=== PATIENT | male | born 1970 | race Caucasian/White ===

== ENCOUNTER → 2019-09-28 11:51 | Outpatient (BNVA) | payer OTHER, SELFPAY | PROVIDERS: Family Provider Family Medicine; PCP Family Medicine; Visit Provider Family Medicine | DX: E87.6 Hypokalemia (principal); I11.0 Hypertensive heart disease with heart failure; I50.32 Chronic diastolic (congestive) heart failure; E78.5 Hyperlipidemia, unspecified | CPT/HCPCS: 80048 ==

== ENCOUNTER → 2020-05-29 09:56 | Outpatient (BNVA) | payer BC, SELFPAY | PROVIDERS: Family Provider Family Medicine; PCP Family Medicine; Visit Provider Family Medicine | DX: E87.6 Hypokalemia (principal); I10 Essential (primary) hypertension; E78.5 Hyperlipidemia, unspecified; I50.30 Unspecified diastolic (congestive) heart failure; M25.50 Pain in unspecified joint; I50.32 Chronic diastolic (congestive) heart failure; R22.9 Localized swelling, mass and lump, unspecified | CPT/HCPCS: 80053; 80061; 85651; 86140 ==

== ENCOUNTER → 2020-09-09 11:02 | Outpatient (BNVA) | payer OTHER, SELFPAY | PROVIDERS: Family Provider Family Medicine; PCP Family Medicine; Visit Provider Nurse Practitioner Family | DX: Z20.828 Contact with and (suspected) exposure to other viral communicable diseases (principal) | CPT/HCPCS: 87635 ==

== ENCOUNTER → 2021-03-11 08:54 | Outpatient (BNVA) | payer OTHER, SELFPAY | PROVIDERS: Family Provider Family Medicine; PCP Family Medicine; Visit Provider Family Medicine | DX: E78.5 Hyperlipidemia, unspecified (principal); I10 Essential (primary) hypertension; E87.6 Hypokalemia; M25.50 Pain in unspecified joint; J45.20 Mild intermittent asthma, uncomplicated; I50.32 Chronic diastolic (congestive) heart failure; M25.59 Pain in other specified joint; I50.30 Unspecified diastolic (congestive) heart failure | CPT/HCPCS: 80053; 80061 ==

== ENCOUNTER → 2021-10-14 09:35 | Outpatient (BNVA) | payer OTHER, SELFPAY | PROVIDERS: Family Provider Family Medicine; PCP Family Medicine; Visit Provider Family Medicine | DX: M17.11 Unilateral primary osteoarthritis, right knee (principal) | CPT/HCPCS: 73562 ==

== ENCOUNTER 2021-12-08 11:44 | Observation (INO) | payer OTHER, SELFPAY ==
[2021-12-08] VITALS (9 sets, daily range): BP systolic 124–169; BP diastolic 73–98; PULSE 81–105; RESP 16–23; TEMP 36.5–36.8; O2SAT 98–100; BMI 46.5
--- NOTE | 2021-12-08 11:45 | XRR_ITS ---
PROCEDURE INFORMATION: Exam: XR Chest Exam date and time: 12/08/2021 12:41 PM Age: 51 years old Clinical indication: Pain; Chest pressure; Additional info: Cp TECHNIQUE: Imaging protocol: XR of the chest. Views: 1 view. COMPARISON: CR Cervical Spine Flex/Ext [id number] 01/05/2018 4:29 PM FINDINGS: Lungs: Unremarkable. No consolidation. Pleural spaces: Unremarkable. No pleural effusion. No pneumothorax. Heart/Mediastinum: Unremarkable. No cardiomegaly. Bones/joints: Unremarkable. XR/XR chest 1V portable [id number] IMPRESSION: No acute findings.
--- NOTE | 2021-12-08 11:45 | ECG_ITS ---
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 Measurements Intervals [place] Rate: 83 P: 38 OR: 136 QRS: 59 QRSD: 111 T: 40 QT: 363 QTc: 428 Interpretive Statements SINUS RHYTHM LOW QRS VOLTAGE IN PRECORDIAL LEADS [QRS DEFLECTION < 1.0 mV IN CHEST LEADS] PATTERN CONSISTENT WITH PULMONARY DISEASE MODERATE INTRAVENTRICULAR CONDUCTION DELAY [110+ ms QRS DURATION] MODERATE ST DEPRESSION [0.05+ mV ST DEPRESSION] No previous ECG available for comparison Electronically Signed On 12-09-2021 9:01:12 CDT by Omar Navarro M.D. [id number]
--- NOTE | 2021-12-08 12:23 | W.ED.CHESTPA ---
HPI - Chest Pain General: Chief Complaint: Chest Pain Stated Complaint: Chest Pains, SOB, Pulse Eratic, Lft Jaw Pain Time Seen by Provider: 12/08/21 11:48 PFSH ED PFSH: Medical History Arthralgia Bilateral carpal tunnel syndrome Cervical spondylosis with myelopathy and radiculopathy Chronic constipation Coronary artery disease Diastolic CHF Dyslipidemia Essential hypertension Switch from ibersartan to losartan due to availability of medication Hypokalemia Mild intermittent asthma, uncomplicated Primary osteoarthritis of left knee Surgical History H/O cervical spinal arthrodesis Previous back surgery S/P cervical spinal fusion S/P knee surgery Family History Mother Cancer Father Cancer Social History Smoking and tobacco status: former smoker Quit status (tobacco): has quit using tobacco Year quit tobacco: 1995 Second hand smoke exposure: No Smoking risk assessment/counseling performed?: No Reason smoking risk assessment not done: not indicated Alcohol intake: never Desire information about alcohol rehabilitation?: No Counseling given: No Reason alcohol counseling not done: not indicated Desire information about substance/drug rehabilitation?: No Counseling given: No Reason substance/drug use counseling not done: not indicated Adopted: No Caregiver/support person: Yes Lives independently: No Household members: spouse Housing: House Marital status: Current occupational status: employed History of recent travel: No Current gender identity: Male Special tigist needs: No Agree to transfusion: No Financial difficulty paying for basics: Not Applicable Course Vital Signs: Vital signs: Vital Signs Temperature 97.8 F 12/08/21 11:52 Pulse Rate 83 12/08/21 11:52 Respiratory Rate 16 12/08/21 11:52 Blood Pressure 142/80 12/08/21 11:52 Pulse Oximetry 99 12/08/21 11:52 Discharge Plan Discharge Condition: Stable Prescriptions: No Action simvastatin 40 mg tablet 40 mg PO DAILY 90 Days Qty: 90 3RF potassium chloride 20 mEq tablet,ER particles/crystals 20 meq PO DAILY 90 Days Qty: 90 3RF meloxicam 15 mg tablet 15 mg PO DAILY 90 Days Qty: 90 3RF Rx Instructions: WITH FOOD losartan 100 mg tablet 100 mg PO DAILY 90 Days Qty: 90 3RF bumetanide 2 mg tablet 2 mg PO BID PRN (Reason: leg swelling) 90 Days Qty: 120 3RF Rx Instructions: 1 daily always, and occasionally 2 daily as directed albuterol sulfate [Proventil HFA] 90 mcg/actuation HFA aerosol inhaler 2 puff INHALATION .COMPLEX PRN (Reason: shortness of breath or wheezing) 30 Days Qty: 18 11RF Rx Instructions: 2 puffs inhalation every 4 to 6 hours PRN; Referrals: Kandi Swan MD [Primary Care Provider] - Coding Level of Care Code ED Director Of Corporate Communications for [facility]
--- NOTE | 2021-12-08 12:27 | ED_ITS ---
HPI - General Adult General: Chief complaint: Chest Pain Stated complaint: Chest Pains, SOB, Pulse Eratic, Lft Jaw Pain Time Seen by Provider: 12/08/21 11:48 History of Present Illness: Patient is a 51-year-old male with history of HTN, HLD, diastolic heart failure followed by Dr. Zaman who is due for stress test on presenting to the emergency room with acute episode of lightheadedness around 10 AM this morning. 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 Patient felt diaphoretic and nauseous around the time when this happened. Patient also reports erratic palpitations. Patient has an apple watch which showed that his heart rate was between 60-1 20. Patient denies any active chest pain, abdominal complaints, back pain, vomiting, diaphoresis, diarrhea, melena/hematochezia. Onset:10am Duration:once lasting for a few minutes Location:home Severity: moderate/severe Associated symptoms: Reports nausea and palpitations; Deny chest pain, dyspnea, rash or vomiting Review of Systems Const: Denies: fever(s) or chills Eyes: Denies: change in vision ENMT: Denies: mouth pain Card: Reports: palpitations; Denies: chest pain Resp: Denies: dyspnea or non-productive cough GI: Reports: nausea; Denies: abdominal pain, vomiting or diarrhea : Denies: dysuria Musc: Denies: extremity pain Skin/Breast: Denies: rash or new lesions Neuro: Reports: other (+light-headedness); Denies: weakness in extremities Psych: Reports: other (Normal mood) Andrea/Lymph: Denies: easy bruising [facility] ED PFSH: Medical History (Updated 12/09/21 @ 16:59 by Ese Wilkins MD) Arthralgia Bilateral carpal tunnel syndrome Cervical spondylosis with myelopathy and radiculopathy Chronic constipation Coronary artery disease Diastolic CHF Dyslipidemia Essential hypertension Switch from ibersartan to losartan due to availability of medication Hypokalemia Mild intermittent asthma, uncomplicated Primary osteoarthritis of left knee Surgical History H/O cervical spinal arthrodesis Previous back surgery S/P cervical spinal fusion S/P knee surgery Family History Mother Cancer Father Cancer Social History Smoking and tobacco status: former smoker Quit status (tobacco): has quit using tobacco Year quit tobacco: 1995 Second hand smoke exposure: No Smoking risk assessment/counseling performed?: No Reason smoking risk assessment not done: not indicated Alcohol intake: never Desire information about alcohol rehabilitation?: No Counseling given: No Reason alcohol counseling not done: not indicated Desire information about substance/drug rehabilitation?: No Counseling given: No Reason substance/drug use counseling not done: not ervin cated Adopted: No Caregiver/support person: Yes Lives independently: No Household members: spouse Housing: House Marital status: Current occupational status: employed History of recent travel: No Current gender identity: Male Special tigist needs: No Agree to transfusion: No Financial difficulty paying for basics: Not Applicable Physical Exam Const: COMMON NORMALS: alert HENMT: COMMON NORMALS: atraumatic HEAD & SCALP: atraumatic MOUTH: moist mucous membranes not abnormal Eye: COMMON NORMALS: EOMs intact bilaterally and conjunctivae normal CONJUNCTIVA: Yes conjunctivae normal Neck/C-Spine: COMMON NORMALS: full ROM and supple Resp: COMMON NORMALS: normal respiratory effort and clear to auscultation bilaterally AUSCULTATION: clear to auscultation bilaterally Cardio: COMMON NORMALS: regular rate RATE: regular rate GI: COMMON NORMALS: Soft to palpation and non-tender PALPATION: Yes Soft to palpation Extremity: COMMON NORMALS: full ROM Neuro: SENSORIUM/ORIENTATION: Yes alert MOTOR EXAM: No Abnormal motor strength present and Other motor observations present (no focal motor deficits) Psych: COMMON NORMALS: speech normal SPEECH: Yes normal speech MOOD & AFFECT: Yes euthymic mood Course Vital Signs: Vital signs: Vital Signs Temperature 98.0 F 12/09/21 17:38 Pulse Rate 75 12/09/21 17:38 Respiratory Rate 24 H 12/09/21 17:38 Blood Pressure 144/85 12/09/21 17:38 Pulse Oximetry 97 12/09/21 17:38 [facility] - General Adult Medical Decision Making 51-year-old male with history of diastolic heart failure, hypertension, hyperlipidemia presented to emergency room for evaluation of lightheadedness at 10 AM this morning accompanied by diaphoresis and nausea. On exam, patient is AAOx3, rest of physical exam within normal limit. Troponin x1 within normal limit. EKG nonischemic. Patient is not having any episodes of lightheadedness in the ED. Given the fact the patient is high risk for cardiac causes for syncope, patient will be admitted to hospital for further workup. She was due for stress test on , if discussed 6 Dr. Rojas who will evaluate echo and decide whether to perform stress test tomorrow morning. Disposition: admission Lab Data : 12/09/21 04:35 12/09/21 04:35 Radiology Impressions Chest X-Ray 12/08/21 11:45 IMPRESSION: No acute findings. Laboratory Results WBC 13.1 10^3/uL (4.0-10.0) H 12/08/21 12:42 RBC 5.20 10^6/uL (4.1-5.3) 12/08/21 12:42 Hgb 16.5 g/dL (11.7-16.6) 12/08/21 12:42 Hct 47.1 % (42.0-52.0) 12/08/21 12:42 MCV 90.6 fl (80-94) 12/08/21 12:42 MCH 31.7 pg (28.0-34.0) 12/08/21 12:42 MCHC 35.0 g/dL (30.0-36.0) 12/08/21 12:42 RDW 12.7 % (12.1-15.1) 12/08/21 12:42 Plt Count 303 10^3/cmm (130-400) 12/08/21 12:42 MPV 10.0 fL (7.4-10.4) 12/08/21 12:42 Neut % (Auto) 86.0 % 12/08/21 12:42 Lymph % (Auto) 6.7 % 12/08/21 12:42 [place] % (Auto) 5.5 % 12/08/21 12:42 Eos % (Auto) 1.0 % 12/08/21 12:42 Baso % (Auto) 0.6 % 12/08/21 12:42 Neut # (Auto) 11.25 10^3/uL (1.8-7.7) H 12/08/21 12:42 Lymph # (Auto) 0.9 10^3/uL (0.8-4.8) 12/08/21 12:42 [place] # (Auto) 0.7 10^3/uL (0.2-0.9) 12/08/21 12:42 Eos # (Auto) 0.1 10^3/uL (0.0-0.8) 12/08/21 12:42 Baso # (Auto) 0.1 10^3/uL (0.0-0.1) 12/08/21 12:42 Nucleated RBC % (auto) 0 % 12/08/21 12:42 Nucleated RBCs # 0.0 /100WBC 12/08/21 12:42 PT 13.20 SECONDS (12.1-14.9) 12/08/21 12:42 INR 0.97 (0.8-1.2) 12/08/21 12:42 D-Dimer 0.32 ug/mIFEU (0-0.59) 12/08/21 12:42 Sodium 138 mmol/L (136-145) 12/08/21 12:42 Potassium 3.2 mmol/L (3.5-5.1) L 12/08/21 12:42 Chloride 98 mmol/L (98-107) 12/08/21 12:42 Carbon Dioxide 30 mmol/L (22-29) H 12/08/21 12:42 Anion Gap 13.2 (5-19) 12/08/21 12:42 BUN 18 mg/dL (6-20) 12/08/21 12:42 Creatinine 1.1 mg/dL (0.7-1.2) 12/08/21 12:42 GFR Calculation 70.0 mL/min (90-130) L 12/08/21 12:42 Glucose 120 mg/dL (65-115) H 12/08/21 12:42 Calculated Osmolality 289 mOsm/kg (285-295) 12/08/21 12:42 Calcium 9.3 mg/dL (8.5-10.5) 12/08/21 12:42 Total Bilirubin 0.8 mg/dL (0.15-1.2) 12/08/21 12:42 AST 14 U/L (0-40) 12/08/21 12:42 ALT 8 U/L (0-41) 12/08/21 12:42 Alkaline Phosphatase 85 IU/L (40-130) 12/08/21 12:42 Troponin T Baseline 7 ng/L (0-15) 12/08/21 12:42 NT-Pro-B Natriuret Pep 32 pg/mL (0-125) 12/08/21 12:42 Total Protein 7.2 g/dL (6.6-8.7) 12/08/21 12:42 Albumin 4.4 g/dL (3.5-5.2) 12/08/21 12:42 Globulin 2.8 g/dL (1.3-4.6) 12/08/21 12:42 TSH 1.89 uIU/mL (0.27-4.20) 12/08/21 12:42 Imaging Data Other Imaging: Radiologist's impression: [address] [address] XRay Report Signed Patient: Carlos Guillen Unit #: [id number] : 1970 Age/Sex: 51 / M ADM Date: 12/08/21 Loc: ER Room/Bed: Attending Dr: Ordering Provider/Ordering MD: Issa Arevalo MD Date of Service: 12/08/21 Procedure(s): XR chest 1V portable [id number] Accession Number(s): [id number] Report Number: [id number] PROCEDURE INFORMATION: Exam: XR Chest Exam date and time: 12/08/2021 12:41 PM Age: 51 years old Clinical indication: Pain; Chest pressure; Additional info: Cp TECHNIQUE: Imaging protocol: XR of the chest. Views: 1 view. COMPARISON: CR Cervical Spine Flex/Ext [id number] 01/05/2018 4:29 PM FINDINGS: Lungs: Unremarkable. No consolidation. Pleural spaces: Unremarkable. No pleural effusion. No pneumothorax. Heart/Mediastinum: Unremarkable. No cardiomegaly. Bones/joints: Unremarkable. XR/XR chest 1V portable [id number] IMPRESSION: No acute findings. ? 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
[2021-12-08 12:53] LABS: Basophils # 0.1 10^3/uL (0.0-0.1); Basophils % 0.6 %; Eosinophils # 0.1 10^3/uL (0.0-0.8); Hematocrit 47.1 % (42.0-52.0); Hemoglobin 16.5 g/dL (11.7-16.6); Lymphocytes # 0.9 10^3/uL (0.8-4.8); Lymphocytes % 6.7 %; Mean Corpuscular Hemoglobin 31.7 pg (28.0-34.0); Mean Corpuscular Volume 90.6 fl (80-94); Monocytes # 0.7 10^3/uL (0.2-0.9); Monocytes % 5.5 %; Neutrophils # 11.25 10^3/uL (1.8-7.7); Nucleated Red Blood Cells % 0 %; Platelet Count 303 10^3/cmm (130-400); Red Cell Distribution Width 12.7 % (12.1-15.1); White Blood Count 13.1 10^3/uL (4.0-10.0)
[2021-12-08 13:07] LABS: INR 0.97 (0.8-1.2)
[2021-12-08 13:12] LABS: Alanine Aminotransferase 8 U/L (0-41); Albumin Level 4.4 g/dL (3.5-5.2); Alkaline Phosphatase 85 IU/L (40-130); Anion Gap 13.2 (5-19); Aspartate Amino Transferase 14 U/L (0-40); Blood Urea Nitrogen 18 mg/dL (6-20); Calcium 9.3 mg/dL (8.5-10.5); Carbon Dioxide 30 mmol/L (22-29); Chloride 98 mmol/L (98-107); Globulin 2.8 g/dL (1.3-4.6); Glucose 120 mg/dL (65-115); Osmolality Calculated 289 mOsm/kg (285-295); Potassium 3.2 mmol/L (3.5-5.1); Sodium 138 mmol/L (136-145); Total Bilirubin 0.8 mg/dL (0.15-1.2); Total Protein 7.2 g/dL (6.6-8.7)
[2021-12-08 13:13] LABS: Troponin(5th) Baseline 7 ng/L (0-15)
--- NOTE | 2021-12-08 13:45 | ECG_ITS ---
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 Measurements Intervals [place] Rate: 78 P: 34 MO: 136 QRS: 77 QRSD: 114 T: 42 QT: 378 QTc: 431 Interpretive Statements SINUS RHYTHM MODERATE INTRAVENTRICULAR CONDUCTION DELAY [110+ ms QRS DURATION] Compared to ECG 12/08/2021 12:01:39 ST (T wave) deviation no longer present Electronically Signed On 12-09-2021 9:04:54 CDT by Omar Navarro M.D. [id number]
[2021-12-08 15:15] LABS: Troponin 5 2HR 6.71 ng/L (0-15)
[2021-12-08 15:22] LABS: NT Pro B Type Natriuretic Pept 32 pg/mL (0-125)
--- NOTE | 2021-12-08 15:26 | P.HP_ITS ---
Providers/Chief Complaint Primary Care Provider: Kandi Swan MD Chief Complaint: Chest Pains, SOB, Pulse Eratic, Lft Jaw Pain History of Present Illness Pleasant 51-year-old gentleman with history of diastolic congestive heart failur e, CAD, he states about 15 years ago had an angiogram with an obstruction and a tight location, however, I see documented as nonobstructive CAD and cardiology follow-up visit, states it was recommended for him to continue regular assessments originally with coronary angiograms, states has been followed with stress test, including stress has been scheduled for this . 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 He was wearing his smart watch with heart monitoring which was showing heart rates vary ing between 60-120. He denies ever having prior such episodes. He states just when coming into ER he felt perhaps some discomfort in the left side of his jaw. Currently he is feeling well. He denies otherwise chest pain or pressure. States about a month ago when he was going after a calf that he needed to catch, he got extremely short of breath, exhausted, with his heart pounding, but symptoms resolved with some rest. He states he has had chronic cough ever since he had COVID-19 in August 2020. Recently has been somewhat more short of breath. States that also about a month ago his Bumex dose was increased to 4 mg at bedtime. Review of Systems Const: Denies: fever(s), chills, body aches or malaise Eyes: Denies: change in vision or eye redness ENMT: Denies: throat pain, oral sores or ear or mastoid pain Card: Reports: edema (Chronic mild LE edema) and pre-syncope; Denies: chest pain or dyspnea on exertion Resp: Reports: other (Snores at night); Denies: dyspnea, productive cough, change in phlegm color or hemoptysis GI: Reports: nausea (during episode); Denies: abdominal pain, vomiting, diarrhea, constipation, hematochezia or melena : Denies: flank pain, difficulty urinating, urinary frequency or hematuria Musc: Denies: back pain, joint swelling or joint redness Skin/Breast: Denies: rash, sores or new lesions Neuro: Denies: headache(s), numbness in extremities, weakness in extremities, dizziness, confusion or seizure-like activity Endo: Denies: polyuria or polydipsia Andrea/Lymph: Denies: easy bleeding or purpura All/Imm: Denies: urticaria, throat swelling or tongue swelling Medications/Allergies Home Medications Medication Instructions Recorded Confirmed Last Taken Type albuterol sulfate 90 mcg/actuation 2 puff INHALATION .COMPLEX PRN 30 03/11/21 12/08/21 Unknown Rx aerosol inhaler (Proventil HFA) Days #18 g losartan 100 mg tablet 100 mg PO DAILY 90 Days #90 tab 03/11/21 12/08/21 12/08/21 Rx meloxicam 15 mg tablet 15 mg PO DAILY 90 Days #90 tab 03/11/21 12/08/21 12/08/21 Rx potassium chloride 20 mEq 20 meq PO DAILY 90 Days #90 tab 03/11/21 12/08/21 12/08/21 Rx tablet,extended release(part/cryst) simvastatin 40 mg tablet 40 mg PO DAILY 90 Days #90 tab 03/11/21 12/08/21 12/08/21 Rx bumetanide 2 mg tablet 4 mg PO BEDTIME 12/08/21 12/08/21 12/07/21 History Allergies Allergy/AdvReac Type Severity Reaction Status Date / Time No Known Allergies Allergy Verified 11/13/21 10:17 PFSH Acute PFSH: Medical History Arthralgia Bilateral carpal tunnel syndrome Cervical spondylosis with myelopathy and radiculopathy Chronic constipation Coronary artery disease Diastolic CHF Dyslipidemia Essential hypertension Switch from ibersartan to losartan due to availability of medication Hypokalemia Mild intermittent asthma, uncomplicated Primary osteoarthritis of left knee Surgical History H/O cervical spinal arthrodesis Previous back surgery S/P cervical spinal fusion S/P knee surgery Family History Mother Cancer Father Cancer Social History Smoking and tobacco status: former smoker Quit status (tobacco): has quit using tobacco Year quit tobacco: 1995 Second hand smoke exposure: No Smoking risk assessment/counseling performed?: No Reason smoking risk assessment not done: not indicated Alcohol intake: never Desire information about alcohol rehabilitation?: No Counseling given: No Reason alcohol counseling not done: not indicated Desire information about substance/drug rehabilitation?: No Counseling given: No Reason substance/drug use counseling not done: not ervin cated Adopted: No Caregiver/support person: Yes Lives independently: No Household members: spouse Housing: House Marital status: Current occupational status: employed History of recent travel: No Current gender identity: Male Special tigist needs: No Agree to transfusion: No Financial difficulty paying for basics: Not Applicable Vitals/I&O/Wt Last Vital Signs Temp 97.8 F 12/08/21 11:52 Pulse 85 12/08/21 12:39 Resp 18 12/08/21 12:39 BP 124/88 12/08/21 12:39 Pulse Ox 100 12/08/21 12:39 Weight last 48 hrs Weight 142.882 kg Physical Exam Narrative: at bedside Const: COMMON NORMALS: no acute distress and patient oriented x3 NUTRITIONAL APPEARANCE: obese HENMT: COMMON NORMALS: oropharynx normal Neck/C-Spine: COMMON NORMALS: no JVD Resp: COMMON NORMALS: normal respiratory effort and clear to auscultation bilaterally AUSCULTATION: clear to auscultation bilaterally Cardio: COMMON NORMALS: no JVD, regular rhythm, S1 normal heart sound present, S2 normal heart sound present and No murmurs present (Cardio) RHYTHM: regular rhythm HEART SOUNDS: S1 normal heart sound present and S2 normal heart sound present GI: COMMON NORMALS: Normal to inspection, nondistended, normoactive bowel sounds present, Soft to palpation and non-tender PALPATION: Yes Soft to palpation Extremity: COMMON NORMALS: no joint enlargement GENERAL: Yes edema (Trace) Neuro: COMMON NORMALS: patient oriented x3 and moves all extremities Skin: COMMON NORMALS: no rashes or lesions noted GENERAL SKIN EXAM: no rashes or lesions noted Data : 12/08/21 12:42 12/08/21 12:42 A&P Assessment and plan (1) Pre-syncope: He states that his Bumex dose was recently increased. He always has some trace edema in lower extremities, although this may also be related to some venous insufficiency, in which case he may be somewhat volume depleted. He is certainly not hypotensive. Will assess orthostatic blood pressures. Consider backing off on Bumex dose slightly. Assess TTE, monitor on telemetry. Consider post discharge cardiac monitoring. Reports heart rates were ranging 60s-120s as per his watch. On presentation also having some slight left jaw pain. Mild ST depression noted on EKG. Was scheduled for stress test on , given presyncopal event, left jaw pain well request for stress test assessment during this observation stay. Low risk for DVT. We will check D-dimer. Check TSH Follow-up with cardiology. Status: Acute (2) Coronary artery disease: I do so he also takes meloxicam as one of his medications. Please discuss and make sure he discontinues meloxicam at discharge. Start aspirin. Continue statin. Hold off adding beta-sarita for now until arrhythmia ruled out. Status: Acute Qualifiers: Coronary Disease-Associated Artery/Lesion type: [place] artery [place] vs. transplanted heart: [place] heart Associated angina: without angina Qualified Code(s): I25.10 - Atherosclerotic heart disease of [place] coronary artery without angina pectoris (3) Diastolic CHF: Trace lower extremity edema. Recently Bumex dose was increased. He states he has been feeling dehydrated frequently. Check orthostatics. Consider de- escalating Bumex. Some amount of peripheral edema may be related to venous insufficiency. He appears also may have sleep apnea as well, please refer for sleep study after discharge. Status: Acute Qualifiers: Heart failure chronicity: chronic Qualified Code(s): I50.32 - Chronic diastolic (congestive) heart failure (4) Snores: Please refer for sleep study. Status: Acute Plan Mild leukocytosis, 13.1. He is afebrile. Chest x-ray without suggestion of pneumonia. Currently without other symptoms of active infection. Please follow-up for any changes in symptoms. Reassess white count. Past history of possible prediabetes, he states he has been following with primary provider, was taken off oral medications. Reports history of asthma for which she uses inhaler occasionally. Some of the exertional shortness of breath he reports recently may be related to this. Reports also some chronic cough ever since he had Covid, may also be related to asthma. Continue albuterol as needed. In case of persistent symptoms consider addition of ICS-beta agonist combo. Mild hypokalemia: Replace HLD HTN Chronic cough after COVID-19 Obesity: Follow-up with primary provider for additional assistance with weight loss options. Other chronic medical problems noted Attestations Medical Necessity Statement*: Place in observation for additional assessment following presyncopal event in a gentleman with cardiac history including CAD, CHF Coding Level of Care Code Acute Facility Maintenance Technician for [facility] Diagnoses Pre-syncope R55 Coronary artery disease I25.10 Coronary Disease-Associated Artery/Lesion type: [place] artery [place] vs. transplanted heart: [place] heart Associated angina: without angina Diastolic CHF I50.32 Heart failure chronicity: chronic Snores R06.83
[2021-12-08] MEDS: acetaminophen 500 mg Tablet PO (15:31)
[2021-12-08 15:36] LABS: Troponin 5 2HR Delta -0.29 ABS# (0-10)
[2021-12-08 16:35] LABS: D Dimer 0.32 ug/mIFEU (0-0.59)
[2021-12-08 16:53] LABS: Thyroid Stimulating Hormone 1.89 uIU/mL (0.27-4.20)
--- NOTE | 2021-12-08 17:24 | ECG_ITS ---
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 Interpretive Statements NAME OF STUDY: EXERCISE SESTAMIBI STRESS TEST INDICATION: Pre syncope/ cad Baseline blood pressure of 156/103 mm Hg, heart rate of 85 beats per minute and oxygen saturation of 95%. EKG showed normal sinus rhythm, rightward axis. Interventricular conduction delay. The patient exercised for 4 minutes 46 seconds on a standard Saúl protocol. Patient attained a maximum heart rate of 161 beats per minute(96% of the maximum predicted heart rate) with a blood pressure at the peak exercise of 168/85 mm Hg. The EKG at the peak exercise revealed sinus tachycardia with frequent isolated PVCs at peak exercise. [address] depression noted in inferolateral leads. Patient did not have any chest pain or any significant arrhythmis with the exercise. The study was terminated due to maximal effort. Blood pressure during recovery increased to 188/86 mmHg Blood pressure at the end of the recovery phase was 159/88 mm Hg with a heart rate of 102 beats per minute and oxygen saturation of 98%. During the recovery phase, T wave inversion noted in inferior leads in late recovery. CONCLUSION: 1. Equivocal EKG response to treadmill exercise. 2. No exercise-induced chest pain or cardiac arrhythmia. 3. Patient exercised for 4 minutes 46 seconds. Decreased exercise tolerance for age, attained a maximum of 7 METs. Maximum VO2 of 24.5 mL/kg/min. 4. Baseline hypertension with normal response to exercise. 5. Exaggerated heart rate response to exercise, may be suggestive of deconditioning. 6. Perfusion scan will be documented separately. Electronically Signed On 12-12-2021 15:05:26 CDT by Britany Zaman M.D. [id number]
--- NOTE | 2021-12-08 17:45 | ECG_ITS ---
[facility] Test Date: 2021-12-08 Pat Name: Carlos Guillen Department: Room: 103 Gender: Male Records Coordinator: : 1970 Requested By: Issa Arevalo Order Number: [id number] Evelyn MD: Omar Navarro M.D. Measurements Intervals [place] Rate: 79 P: 35 NH: 157 QRS: 73 QRSD: 116 T: 3 QT: 364 QTc: 418 Interpretive Statements SINUS RHYTHM MODERATE INTRAVENTRICULAR CONDUCTION DELAY [110+ ms QRS DURATION] Compared to ECG 12/08/2021 14:31:40 T-wave abnormality now present Electronically Signed On 12-09-2021 9:04:46 CDT by Omar Navarro M.D. [id number]
[2021-12-08] MEDS: potassium chloride ER 20 mEq Tablet PO (18:27)
[2021-12-08] MEDS: pneumococcal (23 valent) SDV 0.5 mL IM (18:27)
[2021-12-08 19:27] LABS: Troponin 5 6HR 7.39 ng/L (0-15)
[2021-12-09] VITALS (9 sets, daily range): BP systolic 125–159; BP diastolic 71–88; PULSE 75–98; RESP 15–24; TEMP 36.3–36.7; O2SAT 92–98
[2021-12-09] MEDS: ondansetron 2 mg/ML SDV 2 mL 4 MG IVP (03:59)
[2021-12-09 05:09] LABS: Basophils # 0.1 10^3/uL (0.0-0.1); Basophils % 0.7 %; Eosinophils # 0.2 10^3/uL (0.0-0.8); Eosinophils % 1.8 %; Hematocrit 44.3 % (42.0-52.0); Hemoglobin 15.6 g/dL (11.7-16.6); Lymphocytes # 1.2 10^3/uL (0.8-4.8); Lymphocytes % 13.1 %; Mean Corpuscular HGB Conc 35.2 g/dL (30.0-36.0); Mean Corpuscular Hemoglobin 32.8 pg (28.0-34.0); Mean Corpuscular Volume 93.3 fl (80-94); Mean Platelet Volume 9.9 fL (7.4-10.4); Monocytes # 0.9 10^3/uL (0.2-0.9); Monocytes % 9.5 %; Neutrophils # 6.83 10^3/uL (1.8-7.7); Neutrophils % 74.7 %; Nucleated Red Blood Cells % 0 %; Platelet Count 248 10^3/cmm (130-400); Red Blood Count 4.75 10^6/uL (4.1-5.3); Red Cell Distribution Width 12.7 % (12.1-15.1); White Blood Count 9.1 10^3/uL (4.0-10.0)
[2021-12-09 05:29] LABS: Anion Gap 14.5 (5-19); Blood Urea Nitrogen 18 mg/dL (6-20); Calcium 9.2 mg/dL (8.5-10.5); Carbon Dioxide 28 mmol/L (22-29); Chloride 99 mmol/L (98-107); Creatinine Clr Calc Pharmacy 148.6969; Glomerular Filtration Rate 101.1 mL/min (90-130); Glucose 143 mg/dL (65-115); Osmolality Calculated 290 mOsm/kg (285-295); Potassium 3.5 mmol/L (3.5-5.1); Sodium 138 mmol/L (136-145)
--- NOTE | 2021-12-09 07:27 | PC.NURSE ---
to nuc med for stress test
[2021-12-09] MEDS: losartan 50 mg Tablet 100 MG PO (08:53)
[2021-12-09] MEDS: aspirin 81 mg EC Tablet PO (08:53)
[2021-12-09] MEDS: atorvastatin 40 mg Tablet 20 MG PO (08:54)
[2021-12-09] MEDS: potassium chloride ER 20 mEq Tablet PO (08:54)
--- NOTE | 2021-12-09 10:37 | PC.CHAP ---
Pastoral Care Encounter/Spiritual Assessment Type of Contact [] Declined commercial loan reviewer visit [] Patient/Family/Request visit [] Outpatient visit [] Follow-up visit [] Physician referral [] Code/Alert [x] Routine visit [] Staff referral [] Actively dying [] Patient sleeping [] Family support [] [] Out of room [] Palliative care [] [] Receiving care in room [] Pre-surgical visit [] Trauma [] Long length of stay [] ICU visit [] Other: Relational/Emotional Strength [] Patient feels connected with others/family/visitors/staff [] Distress [] Loneliness/isolation [] Abandonment Spirituality of Patient [] Person of Natalia [] Attends Adventist of their Natalia [] Believes in Prayer [] Reads Bible or Scientologist materials [] There are Spiritual issues to be addressed Residential Installer Interventions [x] Prayer [] Active listening [] Non-anxious presence [] Spiritual/emotional support [] Crisis/trauma care [] Spiritual counseling [] Bereavement support [] Provided bereavement packet [] Provided Bible/devotional materials [] Provided toy/stuffed animal, coloring book to patient or family member [] Provided Communion [] Anointing/[place] [] Salvation [x] Completed spiritual assessment [] Other: Impact on Illness or Injury [] Angry [] Fearful [] Anxious [] Often cries [] Exhaustion [] Unable to work [] Unable to attend moravian [] Unable to walk/stand [] Unable to read [] Unable to drive [] Unable to eat/drink [] Unable to sleep [] Unable to be with family [] Patient intubated [] Other: Summary sneller hand... resting well... went for test waiting for results Time spent with patient 10 min
[2021-12-09] MEDS: perflutren protein-a microsphr 0.22 mg/mL SDV 3 mL IV (11:43)
--- NOTE | 2021-12-09 17:09 | PM.DCS ---
Discharge Providers Date of Admission: 12/08/21 14:24 Date of Discharge: December 09, 2021 Attending Provider at Admission: Drake Yadav Attending Provider at Discharge: Ese Wilkins MD Primary Care Provider: Kandi Swan MD Diagnoses at Discharge Discharge Diagnosis (1) Pre-syncope: Status: Acute (2) Chest pain: Status: Acute Qualifiers: Chest pain type: precordial pain Qualified Code(s): R07.2 - Precordial pain (3) Bradycardia: Status: Acute (4) Coronary artery disease: Status: Chronic Qualifiers: Associated angina: without angina Coronary Disease-Associated Artery/Lesion type: [place] artery [place] vs. transplanted heart: [place] heart Qualified Code(s): I25.10 - Atherosclerotic heart disease of [place] coronary artery without angina pectoris (5) Diastolic CHF: Status: Chronic Qualifiers: Heart failure chronicity: chronic Qualified Code(s): I50.32 - Chronic diastolic (congestive) heart failure (6) Essential hypertension: Status: Chronic Permanent problem details: Switch from ibersartan to losartan due to availability of medication (7) Snores: Status: Acute Reason for Visit Reason for Visit: Chest Pains, SOB, Pulse Eratic, Lft Jaw Pain Brief History: From Dr Yadav H&P: Pleasant 51-year-old gentleman with history of diastolic congestive heart failure, CAD, he states about 15 years ago had an angiogram with an obstruction and a tight location, however, I see documented as nonobstructive CAD and cardiology follow-up visit, states it was recommended for him to continue regular assessments originally with coronary angiograms, states has been followed with stress test, including stress has been scheduled for this .? 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 He was wearing his smart watch with heart monitoring which was showing heart rates varying between 60-120.? He denies ever having prior such episodes.? He states just when coming into ER he felt perhaps some discomfort in the left side of his jaw.? Currently he is feeling well.? He denies otherwise chest pain or pressure.? States about a month ago when he was going after a calf that he needed to catch, he got extremely short of breath, exhausted, with his heart pounding, but symptoms resolved with some rest.? He states he has had chronic cough ever since he had COVID-19 in August 2020.? Recently has been somewhat more short of breath.? States that also about a month ago his Bumex dose was increased to 4 mg at bedtime. Hospital Course Hospital Course Patient was admitted to a medical bed. Serial cardiac enzymes were done and did not show significant delta. EKGs did not show changes. No arrhythmias were noted on telemetry monitoring. Patient underwent stress testing while here. Nuclear images did not show any ischemia. EKG portion of stress testing was not read nor was echocardiogram at the time of discharge. This was explained to the patient. In talking with him he does wear an apple watch. It has been keeping track of his heart rate slightly and during that episode in which he had near syncope, watch was registering heart rate ranging from 38-110s. Review shows that his heart rate is ranging generally 40s to 100s most days. The EKG tracings are inconclusive per him. I was not able to view any of the tracings. He is not on any medications that might contribute to bradycardia but does have snoring and body habitus suggestive of sleep apnea that could be a contributing factor. 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 Zaman in regards to outpatient event monitor. She agreed and order was placed by me for this with patient to come back tomorrow. He had one episode of nausea while in the hospital without vomiting or other discomfort. This morning he does not feel dizzy or lightheaded. White count has normalized, blood sugars remain slightly elevated according to the patient he has been evaluated and not requiring any treatment for this. Patient will need follow-up with with both Dr. Swan and Dr. Zaman. He will come in tomorrow for event monitor placement. His Bumex dosing had recently been increased. For now I have asked him to alternate 2 mg and 4 mg every other day rather than continue the 4 mg daily. At the time of discharge patient was awake and alert, lungs were clear, he had a regular rhythm. He was given an opportunity to ask questions. Discharge plans as described were reviewed with him. Discharge Data Studies Completed and Pending Completed Studies During Hospitalization Category Date Time Status Sestamibi Stress Test Request Routine Exams 12/08/21 17:24 Draft XR chest 1V portable [id number] Stat Exams 12/08/21 11:45 Completed NM chelo perf SPECT r/s* [id number] Routine Nuc Med 12/09/21 17:24 Completed Pending at discharge Category Date Time Status Basic Metabolic Panel AM LABS Lab 12/10/21 04:00 Ordered Basic Metabolic Panel AM LABS Lab 12/11/21 04:00 Ordered Complete Blood Count w/Auto AM LABS Lab 12/10/21 04:00 Ordered Complete Blood Count w/Auto AM LABS Lab 12/11/21 04:00 Ordered CV. echo wo/w contrast [id number] Routine Ultrasound 12/09/21 17:24 Taken Radiology Impressions Chest X-Ray 12/08/21 11:45 IMPRESSION: No acute findings. Laboratory Results WBC 9.1 10^3/uL (4.0-10.0) 12/09/21 04:35 RBC 4.75 10^6/uL (4.1-5.3) 12/09/21 04:35 Hgb 15.6 g/dL (11.7-16.6) 12/09/21 04:35 Hct 44.3 % (42.0-52.0) 12/09/21 04:35 MCV 93.3 fl (80-94) 12/09/21 04:35 MCH 32.8 pg (28.0-34.0) 12/09/21 04:35 MCHC 35.2 g/dL (30.0-36.0) 12/09/21 04:35 RDW 12.7 % (12.1-15.1) 12/09/21 04:35 Plt Count 248 10^3/cmm (130-400) 12/09/21 04:35 MPV 9.9 fL (7.4-10.4) 12/09/21 04:35 Neut % (Auto) 74.7 % 12/09/21 04:35 Lymph % (Auto) 13.1 % 12/09/21 04:35 Dolores % (Auto) 9.5 % 12/09/21 04:35 Eos % (Auto) 1.8 % 12/09/21 04:35 Baso % (Auto) 0.7 % 12/09/21 04:35 Neut # (Auto) 6.83 10^3/uL (1.8-7.7) 12/09/21 04:35 Lymph # (Auto) 1.2 10^3/uL (0.8-4.8) 12/09/21 04:35 Dolores # (Auto) 0.9 10^3/uL (0.2-0.9) 12/09/21 04:35 Eos # (Auto) 0.2 10^3/uL (0.0-0.8) 12/09/21 04:35 Baso # (Auto) 0.1 10^3/uL (0.0-0.1) 12/09/21 04:35 Nucleated RBC % (auto) 0 % 12/09/21 04:35 Nucleated RBCs # 0.0 /100WBC 12/09/21 04:35 PT 13.20 SECONDS (12.1-14.9) 12/08/21 12:42 INR 0.97 (0.8-1.2) 12/08/21 12:42 D-Dimer 0.32 ug/mIFEU (0-0.59) 12/08/21 12:42 Sodium 138 mmol/L (136-145) 12/09/21 04:35 Potassium 3.5 mmol/L (3.5-5.1) 12/09/21 04:35 Chloride 99 mmol/L (98-107) 12/09/21 04:35 Carbon Dioxide 28 mmol/L (22-29) 12/09/21 04:35 Anion Gap 14.5 (5-19) 12/09/21 04:35 BUN 18 mg/dL (6-20) 12/09/21 04:35 Creatinine 0.8 mg/dL (0.7-1.2) 12/09/21 04:35 GFR Calculation 101.1 mL/min (90-130) 12/09/21 04:35 Glucose 143 mg/dL (65-115) H 12/09/21 04:35 Calculated Osmolality 290 mOsm/kg (285-295) 12/09/21 04:35 Calcium 9.2 mg/dL (8.5-10.5) 12/09/21 04:35 Total Bilirubin 0.8 mg/dL (0.15-1.2) 12/08/21 12:42 AST 14 U/L (0-40) 12/08/21 12:42 ALT 8 U/L (0-41) 12/08/21 12:42 Alkaline Phosphatase 85 IU/L (40-130) 12/08/21 12:42 Troponin T Baseline 7 ng/L (0-15) 12/08/21 12:42 Troponin T 120 Minute 6.71 ng/L (0-15) 12/08/21 14:39 Delta Troponin T -0.29 ABS# (0-10) L 12/08/21 14:39 Troponin T Hi Sens 6Hr 7.39 ng/L (0-15) 12/08/21 19:03 Troponin T Hi Sens 6Hr Delta Not Reportable 12/08/21 19:03 NT-Pro-B Natriuret Pep 32 pg/mL (0-125) 12/08/21 12:42 Total Protein 7.2 g/dL (6.6-8.7) 12/08/21 12:42 Albumin 4.4 g/dL (3.5-5.2) 12/08/21 12:42 Globulin 2.8 g/dL (1.3-4.6) 12/08/21 12:42 TSH 1.89 uIU/mL (0.27-4.20) 12/08/21 12:42 Vitals Last Vital Signs Temp 98.0 F 12/09/21 16:00 Pulse 75 12/09/21 16:00 Resp 24 H 12/09/21 16:00 BP 144/85 12/09/21 16:00 Pulse Ox 97 12/09/21 16:00 Discharge Plan Discharge Patient Disposition: Home Condition: Stable Prescriptions: New aspirin 81 mg Tablet,Delayed Release (Dr/Ec) 81 mg PO DAILY Qty: 0 0RF Continued simvastatin 40 mg tablet 40 mg PO DAILY 90 Days Qty: 90 3RF potassium chloride 20 mEq tablet,ER particles/crystals 20 meq PO DAILY 90 Days Qty: 90 3RF meloxicam 15 mg tablet 15 mg PO DAILY 90 Days Qty: 90 3RF Rx Instructions: WITH FOOD losartan 100 mg tablet 100 mg PO DAILY 90 Days Qty: 90 3RF albuterol sulfate [Proventil HFA] 90 mcg/actuation HFA aerosol inhaler 2 puff INHALATION .COMPLEX PRN (Reason: shortness of breath or wheezing) 30 Days Qty: 18 11RF Rx Instructions: 2 puffs inhalation every 4 to 6 hours PRN; Changed bumetanide 2 mg tablet 2 mg PO BEDTIME Qty: 0 0RF Rx Instructions: Alternate 2mg (one tab) every other day and 4mg (2 tabs) every other day Discharge Orders: Discharge Order (Routine); Ordered 12/09/21 Ordered By: Ese Wilkins Other Ambulatory Orders: ECG holter monitor 3 Days (Routine) Timeframe: 1 Day Facility: [facility] - Location: Radiology Ordered By: Ese Wilkins Referrals: Britany Zaman MD [Physician] - 2 weeks ([facility] will contact you to schedule an appointment in 2 weeks. As, well as placement of ECG holter monitor. If you haven't heard fromthem by Tomorrow afternoon. Please call ) Kandi Swan MD [Primary Care Provider] - 7-10 days (Please call for an follow-up appointment with Kandi Swan MD in 7 to 10 days. ) Discharge Diet: Cardiac Discharge Activity: Resume usual activity Patient Instructions: Aspirin (By mouth), Near Syncope (DC), CHF Stoplight Activity Restrictions/Additional Instructions: Slow with position changes Event monitor to be placed 12/10/21 (Dr Wilkins spoke with Dr Zaman) Return if recurrent or new concerning symptoms Echocardiogram results are pending at discharge, Nuclear images from stress testing not consistent with ischemia, EKG portion pending final interpretation at discharge Bumex changed to 2 mg alternating with 4 mg every other day at discharge, continue to take potassium as directed Discharge Attestations Time Spent in Discharge Care*: greater than 30 min Specific Discharge Activities: educating patient, discussing with pcp/other providers, discussing with case management assistant/social workers/dc planners, documenting/other paperwork and evaluating patient/reviewing data Quality Metrics Clinical Quality Measures [ No reported AMI, CVA or VTE this stay] Coding Level of Care Code Acute Chg FW DC note Diagnoses Pre-syncope R55 Coronary artery disease I25.10 Associated angina: without angina Coronary Disease-Associated Artery/Lesion type: [place] artery [place] vs. transplanted heart: [place] heart Diastolic CHF I50.32 Heart failure chronicity: chronic Snores R06.83 Essential hypertension I10 Bradycardia R00.1 Chest pain R07.2 Chest pain type: precordial pain
--- NOTE | 2021-12-09 17:24 | NMCV_ITS ---
NM chelo perf SPECT r/s* [id number] Carlos Guillen Age: 51 Gender: M : 1970 Exam Date: 12/09/2021 07:07 Ordering Phys: Drake Yadav MD Technologist: ALEJO Mann Exam Location: [facility] Indications: CHEST PAIN STRESS TEST Please see separate stress test report in [facility] for full findings IMAGE PROTOCOL Rest/Stress 1 Exercise Day Radiopharmaceutical Dose (mCi) Administration Site Administered by Rest: Tc-99m 10.9 IV ALEJO Ferrell Sestamibi Stress:Tc-99m 33.0 IV ALEJO Ferrell Sestamirobin Rest: 09-Dec-2021 60 Discovery 630 Stress: 09-Dec-2021 30 Discovery 630 Radiopharmaceutical was injected at 88 % maximum heart rate. Images obtained in supine and prone position. SPECT RESULTS Technical Quality: Excellent Raw Data Analysis: Normal Image Corrections: No attenuation or motion correction applied Summed Stress Score: 0 Summed Rest Score: 3 Summed Difference Score: 0 PERFUSION FINDINGS Patchy areas of slightly decreased tracer uptake were noted in the anterior, inferior and apical regions. No significant reversibility were noted in these regions. FUNCTIONAL RESULTS (calculated via Gated SPECT) Stress Image LV EF (%): 65 Stress EDV (mL):101 TID: 0.96 Stress ESV (mL):35 FUNCTIONAL FINDINGS: Segmental wall motion analysis revealing no gross wall motion normalities. IMPRESSIONS 1. Myocardial perfusion imaging revealing patchy areas of persistent decreased tracer uptake in the anterior, inferior and apical regions, most likely represent attenuation artifacts. 2. Normal LV ejection fraction of 65%. 3. LV wall motion analysis revealing no gross wall motion abnormalities. 4. Low probability for coronary ischemia, based on the above findings. Dr Sandip Chua MD [facility] (Electronically Signed) Final Date: 09 December 2021 12:43 S
--- NOTE | 2021-12-09 17:24 | USCV_ITS ---
Carlos Guillen Age: 51 Gender: M : 1970 Exam Date: 12/09/2021 11:18 Ordering Phys: Drake Yadav MD Technologist: [place] [facility] [place]: ef BP: 125 / 71 HR: 82 Rhythm: Sinus Technical Quality: Adequate MEASUREMENTS (Male / Female) Normal Values 2D ECHO LV Diastolic Diameter PLAX 4.0 cm 4.2 - 5.9 / 3.9 - 5.3 cm LV Systolic Diameter PLAX 3.6 cm IVS Diastolic Thickness 1.2 cm 0.6 - 1.0 / 0.6 - 0.9 cm IVS Systolic Thickness 1.6 cm LVPW Diastolic Thickness 1.1 cm 0.6 - 1.0 / 0.6 - 0.9 cm LVPW Systolic Thickness 1.3 cm LVOT Diameter 2.0 cm LV Ejection Fraction 2D Teich 12.6 % LV Ejection Fraction MOD 2C 54.6 % LV Ejection Fraction 2C AL 56.0 % LA Diameter 3.5 cm LA Width 4.6 cm M-MODE Aortic Annulus Diameter 3.2 cm LA Ao Ratio MM 1.1 MV E Point Septal Separation 1.1 cm DOPPLER AV Peak Velocity 129.0 cm/s LVOT Peak Velocity 118.0 cm/s AV Area Cont Eq vti 2.9 cm squared AV Area Cont Eq pk 3.0 cm squared MV Area PHT 5.0 cm squared Mitral E to A Ratio 1.0 MV E' Velocity 45.0 cm/s Mitral E to MV E' Ratio 9.9 Mitral E to LV E' Lateral Ratio 8.7 Mitral E to LV E' Septal Ratio 11.4 TR Peak Velocity 118.7 cm/s TR Peak Gradient 5.6 mmHg Right Atrial Pressure 3.0 mmHg Pulmonary Artery Systolic Pressu 8.6 mmHg FINDINGS Left Ventricle Normal left ventricular size and systolic function, EF 55 %. No Gross wall motion normalities noted. Right Ventricle Artery appears to be of normal size Right Atrium Could not visualized Left Atrium Possibly of normal size Mitral Valve No gross abnormalities noted Aortic Valve No gross abnormalities noted Tricuspid Valve Tricuspid valve not well visualized. Pulmonic Valve Pulmonic valve not well visualized. Pericardium No pericardial effusion. Aorta Normal aortic annulus size. CONCLUSIONS Normal left ventricular size and systolic function, EF 55 %. No Gross wall motion normalities noted. The right-sided structures could not be visualized well. The right ventricle possibly of normal size. There is no pericardial effusion. Dr Sandip Chua MD [facility] (Electronically Signed) Final Date: 12 December 2021 23:38 S
--- NOTE | 2021-12-09 18:00 | PC.NURSE ---
Discharge Note Patient discharged to home via private vehicle accompanied by kiley. Discharge instructions reviewed with patient and/or solar manufacturer's representative such as ff-up with holter monitor tomorrow at [facility] [place]. ff-up with adon. Mobile pharmacy medications and/or prescriptions provided. Belongings/home medications returned.
== END 2021-12-09 18:10 | disposition home or self-care (01) ==
LOC: ER 15:09 → CSU 17:03
PROVIDERS: Emergency Medicine; Admitting Provider Internal Medicine; Emergency Provider Emergency Medicine; PCP Family Medicine; Visit Provider Hospitalist
DX: R55 Syncope and collapse (principal); I25.10 Atherosclerotic heart disease of native coronary artery without angina pectoris; I11.0 Hypertensive heart disease with heart failure; I50.32 Chronic diastolic (congestive) heart failure; R06.83 Snoring; R00.1 Bradycardia, unspecified; R07.2 Precordial pain; E78.5 Hyperlipidemia, unspecified; I10 Essential (primary) hypertension; Z98.1 Arthrodesis status; Z87.891 Personal history of nicotine dependence; Z86.16 Personal history of COVID-19; E66.9 Obesity, unspecified; Z68.42 Body mass index [BMI] 45.0-49.9, adult
CPT/HCPCS: 36415; 71045; 78452; 80048; 80053; 83880; 84443; 84484; 85025; 85378; 85610; 90471; 90732; 93005; 93017; 96374; 99285; A9500; C8929; G0378; J2405; Q9956

== ENCOUNTER → 2022-02-24 08:39 | Outpatient (BNVA) | payer OTHER, SELFPAY | PROVIDERS: PCP Family Medicine; Visit Provider Family Medicine | DX: E78.5 Hyperlipidemia, unspecified (principal); E87.6 Hypokalemia; K21.9 Gastro-esophageal reflux disease without esophagitis; M25.50 Pain in unspecified joint; I10 Essential (primary) hypertension; J45.20 Mild intermittent asthma, uncomplicated; I50.32 Chronic diastolic (congestive) heart failure; M25.59 Pain in other specified joint | CPT/HCPCS: 80048; 80061 ==

== ENCOUNTER → 2022-07-15 09:17 | Outpatient (BNVA) | payer OTHER, SELFPAY | PROVIDERS: PCP Family Medicine; Visit Provider Internal Medicine Cardiovascular Disease | DX: I10 Essential (primary) hypertension (principal); I25.10 Atherosclerotic heart disease of native coronary artery without angina pectoris; I50.32 Chronic diastolic (congestive) heart failure | CPT/HCPCS: 80048; 83735; 83880 ==

== ENCOUNTER 2022-09-11 07:53 | Outpatient (CLI) | payer OTHER, SELFPAY | END 2022-09-11 07:54 | disposition home or self-care (01) | PROVIDERS: PCP Family Medicine; Visit Provider Internal Medicine Cardiovascular Disease | DX: R06.02 Shortness of breath (principal) | CPT/HCPCS: 94060; 94726; 94729; J7613 ==

== ENCOUNTER → 2022-10-01 14:49 | Outpatient (BNVA) | payer OTHER, SELFPAY | PROVIDERS: PCP Family Medicine; Visit Provider Orthopaedic Surgery | DX: M17.11 Unilateral primary osteoarthritis, right knee (principal) | CPT/HCPCS: 73560; 73565 ==

== ENCOUNTER 2022-10-09 07:54 | Emergency (ER) | payer OTHER, SELFPAY ==
[2022-10-09 08:10] VITALS: BP 160/98; PULSE 96; RESP 18; TEMP 36.7; O2SAT 97; BMI 46.5
--- NOTE | 2022-10-09 08:17 | ED_ITS ---
HPI - Back Pain/Injury General: Chief Complaint: Back Pain/Injury Stated Complaint: can't walk 2xdays Time Seen by Provider: 10/09/22 07:55 Source: patient Mode of arrival: ambulatory History of Present Illness: 51-year-old male presents emergency room with complaint of back pain left hip pain pain radiating from his back down to his left hip into the upper leg. Its been going on for the last couple of days he has no difficulty bowel or bladder. seem to begin after he rolled over in bed and felt a sharp pain in his low back. No fever sweats chills vomiting or diarrhea no abdominal pain. He has previously had back surgery. MD elicited complaint: back pain Pertinent past history: prior back pain Onset (ago): day(s) (3) Quality: sharp Location: lumbar spine Exacerbating factors: movement, supine positioning, walking and lifting Relieving factors: sitting upright Context: turning/twisting Associated symptoms: Deny abdominal pain, arthralgias, chills, change in bowel habits, difficulty walking, dysuria, fatigue, fecal incontinence, fever(s), hematuria, myalgias, nausea, numbness, syncope, tingling/numbness/burning, urinary frequency, urinary urgency, vomiting or weakness Review of Systems Const: Denies: fever(s), chills, fatigue or malaise ENMT: Denies: throat pain, ear or mastoid pain, nasal discharge or nasal congestion Card: Denies: chest pain, palpitations, irregular heart rhythm, edema or syncope Resp: Denies: dyspnea, productive cough or non-productive cough GI: Denies: abdominal pain, nausea, vomiting, fecal incontinence or change in bowel habits : Denies: dysuria, urinary frequency, urinary urgency or hematuria Musc: Reports: back pain; Denies: extremity pain or extremity swelling Skin/Breast: Denies: rash or pruritus Neuro: Denies: difficulty walking PFSH ED PFSH: Medical History Arthralgia Bilateral carpal tunnel syndrome Cervical spondylosis with myelopathy and radiculopathy Chronic constipation Coronary artery disease Diastolic CHF Dyslipidemia Essential hypertension Switch from ibersartan to losartan due to availability of medication Hypokalemia Mild intermittent asthma, uncomplicated Primary osteoarthritis of left knee Surgical History H/O cervical spinal arthrodesis Previous back surgery S/P cervical spinal fusion S/P knee surgery Family History Mother Cancer Father Cancer Social History Smoking and tobacco status: former smoker Quit status (tobacco): has quit using tobacco Year quit tobacco: 1995 Second hand smoke exposure: No Smoking risk assessment/counseling performed?: No Reason smoking risk assessment not done: not indicated Alcohol intake: never Desire information about alcohol rehabilitation?: No Counseling given: No Reason alcohol counseling not done: not indicated Desire information about substance/drug rehabilitation?: No Counseling given: No Reason substance/drug use counseling not done: not indicated Adopted: No Caregiver/support person: Yes Lives independently: No Household members: spouse Housing: House Marital status: Current occupational status: employed History of recent travel: No Current gender identity: Male Special tigist needs: No Agree to transfusion: No Financial difficulty paying for basics: Not Applicable Physical Exam Const: COMMON NORMALS: no acute distress GENERAL APPEARANCE: cooperative and comfortable ORIENTATION/CONSCIOUSNESS: Yes awake, Yes oriented to person, Yes oriented to place and Yes oriented to time HENMT: COMMON NORMALS: normocephalic, atraumatic and hearing grossly normal bilaterally HEAD & SCALP: normocephalic and atraumatic Resp: COMMON NORMALS: normal respiratory effort, No retractions, No use of accessory muscles and clear to auscultation bilaterally AUSCULTATION: clear to auscultation bilaterally Cardio: COMMON NORMALS: regular rate, regular rhythm and No murmurs present (Cardio) RATE: regular rate RHYTHM: regular rhythm GI: COMMON NORMALS: Soft to palpation and No hepatosplenomegaly present AUSCULTATION: Yes normoactive bowel sounds PALPATION: Yes Soft to palpation, No Tenderness to palpation present (GI), No Guarding due to palpation present (GI) and Yes No hepatosplenomegaly present Extremity: COMMON NORMALS: normal to inspection, capillary refill normal, no clubbing, cyanosis or edema, no calf tenderness and no pedal edema Neuro: SENSORIUM/ORIENTATION: Yes oriented to person, Yes oriented to place and Yes oriented to time MOTOR EXAM: 5/5 motor strength present throughout DEEP TENDON REFLEXES: Right patellar reflex intensity grade: 2+, Left patellar reflex intensity grade: 2+, Right ankle reflex intensity grade: 2+ and Left ankle reflex intensity grade: 2+ OTHER: Dorsal and plantarflexion strength 5 of 5 Skin: COMMON NORMALS: no rashes or lesions noted GENERAL SKIN EXAM: no rashes or lesions noted Course Vital Signs: Vital signs: Vital Signs Temperature 98.0 F 10/09/22 08:10 Pulse Rate 95 10/09/22 09:00 Respiratory Rate 16 10/09/22 09:00 Blood Pressure 153/109 10/09/22 09:00 Pulse Oximetry 93 10/09/22 09:00 Oxygen Delivery Me thod 10/09/22 09:00 MDM - Back Pain/Injury Medical Decision Making Patient improved with medications given he has no radicular symptoms at this time I think his symptoms are caused by strain and lumbar area after rolling over in bed. We will put him on a steroid taper tizanidine continue his meloxicam follow-up with primary care he may need physical therapy or if his symptoms persist may need further evaluation possibly including advanced imaging Medical Records I reviewed the patient's medical records. Labs I reviewed the patient's lab results. Discharge Plan Discharge Patient Disposition: Home Clinical Impression: Strain of lumbar region Condition: Stable Prescriptions: New prednisone 20 mg tablet 20 mg PO TID Qty: 15 0RF Rx Instructions: 1 p.o. 3 times daily x3 days, 1 p.o. twice daily x2 days, 1 p.o. daily x2 days tizanidine 4 mg tablet 4 mg PO Q6H PRN (Reason: muscle spasticity) Qty: 30 0RF Rx Instructions: do not exceed 3 doses per 24 hrs No Action spironolactone 25 mg tablet 12.5 mg PO DAILY Qty: 45 3RF simvastatin 40 mg tablet 40 mg PO DAILY 90 Days Qty: 90 3RF omeprazole 40 mg capsule,delayed release(DR/EC) 40 mg PO DAILY 90 Days Qty: 90 3RF meloxicam 15 mg tablet 15 mg PO DAILY 90 Days Qty: 90 3RF Rx Instructions: WITH FOOD losartan 100 mg tablet 100 mg PO DAILY 90 Days Qty: 90 3RF albuterol sulfate [Proventil HFA] 90 mcg/actuation HFA aerosol inhaler 2 puff INHALATION .COMPLEX PRN (Reason: shortness of breath or wheezing) 30 Days Qty: 18 11RF Rx Instructions: 2 puffs inhalation every 4 to 6 hours PRN; bumetanide 2 mg tablet 2 mg PO DIRECTED Qty: 60 6RF Rx Instructions: Alternate 2mg (one tab) every other day and 4mg (2 tabs) every other day potassium chloride 20 mEq tablet,ER particles/crystals 20 meq PO DIRECTED Qty: 135 3RF Rx Instructions: Alternate 1 tab one day & 2 tabs the next day aspirin 81 mg Tablet,Delayed Release (Dr/Ec) 81 mg PO DAILY Qty: 0 0RF Discharge Orders: Discharge ED (Routine); Ordered 10/09/22 Ordered By: Pernell Bonilla Referrals: Kandi Swan MD [Primary Care Provider] - Discharge Diet: Usual diet Discharge Activity: Limit activity as instructed Patient Instructions: Opioid Safety, Pain Management Activity Restrictions/Additional Instructions: You were seen today for low back pain. Continue using the meloxicam you are also given tizanidine which is a muscle relaxer and prednisone taper which she can start tomorrow. Recommend you avoid stooping bending lifting to the low back for the next several days should not lift anything greater than 10 pounds. Follow-up with your primary care doctor if not improving. Coding Level of Care Code ED Floor Worker [facility] for [facility] Exam Comprehensive
[2022-10-09] MEDS: ketorolac 30 mg/mL INJ IVP (08:47)
[2022-10-09 08:48] VITALS: RESP 16
[2022-10-09] MEDS: morphine 4 mg/mL SDV 1 mL IVP (08:48)
[2022-10-09] MEDS: orphenadrine 30 mg/mL Inj 2 mL 60 MG IVP (08:48)
[2022-10-09] MEDS: dexamethasone 10 mg/mL INJ IVP (08:48)
[2022-10-09 09:00] VITALS: BP 153/109; PULSE 95; RESP 16; O2SAT 93
== END 2022-10-09 10:41 | disposition home or self-care (01) ==
PROVIDERS: Emergency Provider Family Medicine; PCP Family Medicine
DX: S39.012A Strain of muscle, fascia and tendon of lower back, initial encounter (principal); Z79.82 Long term (current) use of aspirin; I25.10 Atherosclerotic heart disease of native coronary artery without angina pectoris; I11.0 Hypertensive heart disease with heart failure; I50.30 Unspecified diastolic (congestive) heart failure; E78.5 Hyperlipidemia, unspecified; Z87.891 Personal history of nicotine dependence; X50.9XXA Other and unspecified overexertion or strenuous movements or postures, initial encounter
CPT/HCPCS: 96374; 96375; 99284; J1100; J1885; J2270; J2360

== ENCOUNTER → 2022-10-15 09:39 | Outpatient (BNVA) | payer OTHER, SELFPAY | PROVIDERS: PCP Family Medicine; Visit Provider Family Medicine | DX: M25.552 Pain in left hip (principal); S39.012A Strain of muscle, fascia and tendon of lower back, initial encounter; G89.29 Other chronic pain; X58.XXXA Exposure to other specified factors, initial encounter | CPT/HCPCS: 72100; 73502 ==

== ENCOUNTER → 2022-11-04 08:22 | Outpatient (BNVA) | payer OTHER, SELFPAY | PROVIDERS: PCP Family Medicine; Referring Provider Family Medicine; Visit Provider Physician Assistant | DX: M51.37 Other intervertebral disc degeneration, lumbosacral region (principal); M54.16 Radiculopathy, lumbar region | CPT/HCPCS: 72110 ==

== ENCOUNTER 2022-11-25 06:00 | Outpatient (RCR) | payer OTHER, SELFPAY | END 2022-12-12 23:59 | disposition home or self-care (01) | LOC: MPT 06:00 | PROVIDERS: PCP Family Medicine; Visit Provider Physician Assistant | DX: M54.50 Low back pain, unspecified (principal) | CPT/HCPCS: 97110; 97140; 97162; G0283 ==

== ENCOUNTER 2022-12-13 06:00 | Outpatient (RCR) | payer OTHER, SELFPAY | END 2023-01-11 23:59 | disposition home or self-care (01) | LOC: MPT 06:00 | PROVIDERS: PCP Family Medicine; Visit Provider Physician Assistant | DX: M54.50 Low back pain, unspecified (principal) | CPT/HCPCS: 97110; 97140; G0283 ==

== ENCOUNTER 2023-01-27 08:24 | Outpatient (CLI) | payer OTHER, SELFPAY ==
--- NOTE | 2023-01-27 | ECG_ITS ---
[facility] Test Date: 2023-01-27 Pat Name: Carlos Guillen Department: Room: Gender: Male Wheel Roller: : 1970 Requested By: Kathi Zavala Order Number: [id number] Evelyn MD: Omar Navarro M.D. Interpretive Statements NAME OF STUDY: LEXISCAN SESTAMIBI STRESS TEST INDICATION: [burdick, ] Procedure: At the baseline, the blood pressure was 122/92 mmHg with a heart rate of 77 bpm. The electrocardiogram showed normal sinus rhythm, normal axis with normal ST and T's. The Lexiscan was infused over a period of 20 seconds. A total of 0.4 mg of Lexiscan was infused. The stress phase was continued for a total of 5 minutes. Heart rate was at the end of stress phase was 91 bpm and a blood pressure of 115/80 mmHg. The EKG at the peak infusion revealed normal sinus rhythm with no significant ST-T wave changes. Sestamibi was injected 20 seconds after the Lexiscan infusion. Blood pressure at the end of recovery phase was 134/81 mmHg with a heart rate of 93 bpm. Conclusion: 1. Normal EKG response to Lexiscan infusion 2. No Lexiscan induced chest pain or cardiac arrhythmia. 3. Normal blood pressure and heart rate response. 4. Sestamibi/sestamibi perfusion scan pending; see separate report. Electronically Signed On 01-31-2023 21:23:35 CDT by Omar Navarro M.D. [email or web address]
[2023-01-27 08:50] VITALS: BMI 46.6
--- NOTE | 2023-01-27 08:52 | NMCV_ITS ---
NM chelo perf SPECT r/s* [id number] Carlos Guillen Age: 52 Gender: M : 1970 Exam Date: 01/27/2023 09:41 Ordering Phys: Kathi Zavala Technologist: ALEJO Mann Exam Location: [facility] Indications: ATHEROSCLEROTIC HEART DISEASE STRESS TEST Please [facility] for [facility] findings IMAGE PROTOCOL Rest/Stress 1 Lexiscan Day Radiopharmaceutical Dose (mCi) Administration Site Administered by Rest: Tc-99m 11.0 IV ALEJO Ferrell Sestamibi Stress:Tc-99m 33.0 IV ALEJO Ferrell Sestamibi Rest: 27-Jan-2023 60 Discovery 630 Stress: 27-Jan-2023 30 Discovery 630 0.4mg Lexiscan. Images obtained in supine and prone position. SPECT RESULTS Technical Quality: Excellent Raw Data Analysis: Image Corrections: No attenuation or motion correction applied Summed Stress Score: 1 Summed Rest Score: 4 Summed Difference Score: 1 PERFUSION FINDINGS There is reduced radiotracer uptake in inferior and apical villa. This improves on stress imaging. This is consistent with with attenuation artifact. FUNCTIONAL RESULTS (calculated via Gated SPECT) Stress Image LV EF (%): 63 Stress EDV (mL):109 TID: 0.94 Stress ESV (mL):40 FUNCTIONAL FINDINGS: There is normal left ventricular systolic function. IMPRESSIONS 1. Attenuation artifact seen in inferior and apical villa. No evidence of ischemia. 2. LV systolic function normal. Omar Navarro MD (Electronically Signed) Final Date: 29 Jan 2023 12:32 S
[2023-01-27] MEDS: regadenoson 0.4 Mg/5 ml Syringe IVP (10:20)
[2023-01-27 10:30] VITALS: BP 134/81; PULSE 83
== END 2023-01-27 08:25 | disposition home or self-care (01) ==
PROVIDERS: PCP Family Medicine; Visit Provider Nurse Practitioner Family
DX: I25.10 Atherosclerotic heart disease of native coronary artery without angina pectoris (principal); R06.00 Dyspnea, unspecified
CPT/HCPCS: 36415; 78452; 93017; 96374; A9500; J2785

== ENCOUNTER 2023-02-16 14:04 | Outpatient (CLI) | payer OTHER, SELFPAY ==
--- NOTE | 2023-02-16 14:30 | CT_ITS ---
WS: [id number] CT RIGHT KNEE, NONCONTRAST TECHNIQUE: Noncontrast CT of the RIGHT knee to include the RIGHT hip and ankle. EVIE CLINICAL INFORMATION: pre op planning COMPARISON: None. DLP: 960.[address] scans at [facility] use at least one of these dose optimization techniques: automated e xposure control; mA and/or kV adjustment per patient size (includes targeted exams where dose is matc hed to clinical indication); or iterative reconstruction. FINDINGS: Moderate to advanced narrowing medial joint compartment. Hypertrophic patella. Narrowing of the jo lofemoral articulation. Soft tissue edema. Hypertrophic changes along the joint line. Small suprapate llar effusion. Mild degenerative narrowing both hips. Hypertrophic changes LEFT SI joint. CT/CT knee RT EVIE IMPRESSION: Images obtained for preoperative purposes.
== END 2023-02-16 14:05 | disposition home or self-care (01) ==
PROVIDERS: PCP Family Medicine; Visit Provider Orthopaedic Surgery
DX: Z01.818 Encounter for other preprocedural examination (principal); M17.11 Unilateral primary osteoarthritis, right knee
CPT/HCPCS: 73700

== ENCOUNTER → 2023-06-16 10:18 | Outpatient (BNVA) | payer OTHER, SELFPAY | PROVIDERS: PCP Family Medicine; Visit Provider Physician Assistant | DX: M17.11 Unilateral primary osteoarthritis, right knee (principal); Z01.818 Encounter for other preprocedural examination | CPT/HCPCS: 36415; 80053; 81003; 85025 ==

== ENCOUNTER 2023-06-29 14:07 | Outpatient (CLI) | payer OTHER, SELFPAY ==
--- NOTE | 2023-06-29 15:00 | CT_ITS ---
WS: [id number] CT RIGHT KNEE, NONCONTRAST TECHNIQUE: Noncontrast CT of the RIGHT knee to include the RIGHT hip and ankle. CLINICAL INFORMATION: DJD RIGHT KNEE COMPARISON: 02/16/2023 DLP: 1063.[address] scans at [facility] use at least one of these dose optimization techniques: automated e xposure control; mA and/or kV adjustment per patient size (includes targeted exams where dose is matc hed to clinical indication); or iterative reconstruction. FINDINGS: Moderate to advanced degenerative narrowing medial joint compartment. Hypertrophic patella. Narrowing of the patellofemoral articulation. Soft tissue edema. Hypertrophic changes along the joint line. Tiny suprapatellar effusion. Mild degen erative narrowing both hips. Hypertrophic changes LEFT SI joint. Enlarged prostate measuring 3.9 cm. Recommend correlation PSA. IMPRESSION: Images obtained for preoperative purposes.
== END 2023-06-29 14:08 | disposition home or self-care (01) ==
LOC: RAD 14:07
PROVIDERS: PCP Family Medicine; Visit Provider Physician Assistant
DX: M17.11 Unilateral primary osteoarthritis, right knee (principal)
CPT/HCPCS: 73700

== ENCOUNTER → 2023-07-22 08:40 | Outpatient (BNVA) | payer OTHER, SELFPAY | PROVIDERS: PCP Family Medicine; Visit Provider Family Medicine | DX: Z01.818 Encounter for other preprocedural examination (principal) | CPT/HCPCS: 80048; 81000; 85025 ==

== ENCOUNTER 2023-07-27 16:55 | Observation (INO) | payer OTHER, SELFPAY ==
[2023-07-27] VITALS (22 sets, daily range): BP systolic 117–161; BP diastolic 69–99; PULSE 77–100; RESP 13–20; TEMP 36.2–37.3; O2SAT 92–99; BMI 44.0; BMI 36.0
[2023-07-27] MEDS: lactated ringers 500 ML IV (07:29)
[2023-07-27] MEDS: acetaminophen 1,000 MG/100 ML PIGGYBACK 400 MG IV ×2 (07:29→18:31)
[2023-07-27] MEDS: scopolamine 1.5 Patch 1 PATCH TRANSDERMA (07:39)
[2023-07-27] MEDS: ketorolac 30 mg/mL INJ IVP (07:45)
[2023-07-27] MEDS: sodium chloride 0.9% 1,000 ML 30 ML IV (08:25)
--- NOTE | 2023-07-27 08:33 | ANES.PREANE2 ---
Pre-Anesthetic Assessment Height/Weight: Height 1.78 m Weight 139.253 kg Temp Pulse Resp BP Pulse Ox O2 Del Method 97.7 F 77 18 137/97 97 Room Air 07/27/23 07:14 07/27/23 07:14 07/27/23 07:14 07/27/23 07:14 07/27/23 07:14 07/27/23 07:15 Operation Date: 07/27/23 08:55 Proposed Procedures p Isauro Robot Total Knee Arthroplasty(Right) - Chris [place], Familial anesthetic complications: None Was Beta Quentin taken within 24 hours: N/A Was Clonidine taken within 24 hours: N/A Last intake: Intake Last Liquid Date 07/26/23 Last Liquid Time 22:00 Last Solid Date 07/26/23 Last Solid Time 22:00 Social No alcohol and No tobacco Exam alert, oriented x 3, clear to auscultation bilaterally and regular rate & rhythm Airway Mallampati: Class IV Dentition: other (missing teeth) Pulmonary Asthma CV/HEM Coronary Artery Disease (nonobstructive on most recent cath, showed some myocardial bridging of the marginal branch and mid LAD), Congestive Heart Failure (Diastolic) and Hypertension Metabolic Morbid Obesity Anesthetic Plan ASA status: 3 Anesthesia: Regional (specify below) (Spinal + adductor, patient informed of possibility of converting to general) Risk of > 500 ml blood loss (7ml/kg in children): Yes, adequate IV access and fluids planned Medications/Allergies Home Medications Medication Instructions Recorded Confirmed Last Taken Type aspirin 81 mg tablet,delayed 81 mg PO DAILY #0 tabs 12/09/21 07/24/23 07/20/23 Rx release ipratropium 20 mcg-albuterol 100 1 puff inhalation QID PRN 11/13/22 07/27/23 07/26/23 Rx mcg/actuation mist for inhalation shortness of breath or wheezing #4 grams budesonide-formoterol HFA 160 2 puff inhalation BID 30 days 01/01/23 07/27/23 07/26/23 Rx mcg-4.5 mcg/actuation aerosol #10.2 grams inhaler (Symbicort) bumetanide 2 mg tablet 2 mg PO DIRECTED 90 days #180 03/23/23 07/24/23 07/26/23 Rx tabs potassium chloride 20 mEq 20 meq PO DIRECTED #135 tabs 05/26/23 07/24/23 07/27/23 04:45 Rx tablet,extended release(part/cryst) epinephrine 0.3 mg/0.3 mL 0.3 mg (0.3 mL) IM Q15M PRN 05/31/23 07/24/23 Unknown Rx injection, auto-injector (EpiPen anaphylaxis #2 ea 2-Cecil) psyllium husk 3.4 gram/5.4 gram 1 tbsp PO DAILY PRN Constipation 05/31/23 07/24/23 07/24/23 History oral powder (Metamucil) losartan 100 mg tablet 100 mg PO DAILY 07/24/23 07/24/23 07/26/23 History meloxicam 15 mg tablet 15 mg PO DAILY 07/24/23 07/24/23 07/20/23 History simvastatin 40 mg tablet 40 mg PO DAILY 07/24/23 07/24/23 07/26/23 History Allergies Allergy/AdvReac Type Severity Reaction Status Date / Time red wasp sting Allergy anaphylaxis Uncoded 07/27/23 07:10 Current Medications Generic Name Dose Route Start Last Admin Trade Name Freq PRN Reason Stop Dose Admin Sodium Chloride 1,000 mls @ 30 mls/hr 07/27/23 07:15 07/27/23 08:25 Sodium Chloride 0.9% IV 07/28/23 07:14 30 mls/hr .Q24H GONZALEZ Administration PFSH Anesthesia Medical History Arthralgia Bilateral carpal tunnel syndrome Cervical spondylosis with myelopathy and radiculopathy Chronic constipation Coronary artery disease Diastolic CHF Dyslipidemia Essential hypertension Switch from ibersartan to losartan due to availability of medication Hypokalemia Mild intermittent asthma, uncomplicated Primary osteoarthritis of left knee Surgical History H/O cervical spinal arthrodesis Previous back surgery S/P cervical spinal fusion S/P knee surgery Family History Mother Cancer Father Cancer Social History Smoking and tobacco/nicotine status: former use of tobacco/nicotine Quit status (tobacco/nicotine): has quit using Year quit tobacco: 1995 Second hand smoke exposure: No Alcohol intake: never Substance/Drug Use: never Adopted: No Caregiver/support person: Yes Lives independently: No Household members: spouse Housing: House Marital status: Current occupational status: employed Do you think of yourself as: Straight/Heterosexual Current gender identity: Male Special tigist needs: No Agree to transfusion: No Data Anesthesia Blood Bank 07/27/23 07:35 Blood Type A Positive Rho(D) Type Rh positive Cardiac Studies: Echocardiogram 12/09/21 Sestamibi Stress Test (Cardiology) 01/27/23 Holter Monitor 12/12/21
--- NOTE | 2023-07-27 09:24 | ANES.PROC ---
Anesthesia Procedures Procedure/Date: 07/27/23 Nerve Block ^: Nerve Block 1: Main Anesthesia: spinal anesthesia block Time Out Performed: Yes Consent: requested by attending/covering physician, from patient, from other, risks and benefits reviewed and patient agrees to proceed Nerve block location: adductor canal (R) Anesthesia monitors applied: pulse oximetry, EKG, BP cuff and oxygen Nerve block position: supine Anesthetic Used: ropivicaine 0.5% (30 ml) and with decadron (4 mg) Ultrasound used to: recognize landmarks and visualize and ID femerol nerve Nerve Stimulator Used?: No Interscalene/Femoral BLK: 4 stimuplex 21 g needle used for position and inplane approach, visualize local anesthetic spread and no vascular puncture identified Injection: neg aspiration of heme Patient Tolerated Procedure: well
--- NOTE | 2023-07-27 09:44 | W.PM.OPSUD ---
Surgery/Procedure H&P Update DATE OF PROCEDURE: July 27, 2023 DATE H&P PERFORMED: 06/16/23 H&P UPDATE INFORMATION: I have reviewed H&P completed within last 30 days, I have examined patient prior to procedure and No changes to prior documentation PREOP DIAGNOSIS: Right knee degenerative joint disease PRIMARY INDICATION FOR PROCEDURE: Right knee degenerative joint disease PLANNED PROCEDURE: Operation Date: 07/27/23 08:55 Proposed Procedures p Isauro Robot Total Knee Arthroplasty(Right) - Chris Mathews DO
--- NOTE | 2023-07-27 09:45 | PM.OPSURHP ---
Providers/Chief Complaint Admitting Physician: Chris Mathews DO Primary Care Provider: Kandi Swan MD Chief Complaint: M17.11 Right knee degenerative joint disease, status post right total knee arthroplasty History of Present Illness Carlos Guillen is a 53 year old male failed conservative treatment of severe right knee degenerative joint disease. He has been medically optimized for preoperative clearance team he is lost weight and now is BMI under 45. He has failed conservative treatment for his right knee degenerative joint disease and [id number] arthritis at this point time through shared decision making he elects to proceed with a right total knee arthroplasty is here in the preoperative clinic with plan for right total knee arthroplasty Isauro lucero assisted with postoperative admitting the floor. Denies any changes in his overall health. Denies any fevers chills chest pain shortness of breath nausea or vomiting Review of Systems General: Reports: 10 or more systems reviewed and unremarkable except in HPI and below Medications/Allergies Home Medications Medication Instructions Recorded Confirmed Last Taken Type aspirin 81 mg tablet,delayed 81 mg PO DAILY #0 tabs 12/09/21 07/24/23 07/20/23 Rx release ipratropium 20 mcg-albuterol 100 1 puff inhalation QID PRN 11/13/22 07/27/23 07/26/23 Rx mcg/actuation mist for inhalation shortness of breath or wheezing #4 grams budesonide-formoterol HFA 160 2 puff inhalation BID 30 days 01/01/23 07/27/23 07/26/23 Rx mcg-4.5 mcg/actuation aerosol #10.2 grams inhaler (Symbicort) bumetanide 2 mg tablet 2 mg PO DIRECTED 90 days #180 03/23/23 07/24/23 07/26/23 Rx tabs potassium chloride 20 mEq 20 meq PO DIRECTED #135 tabs 05/26/23 07/24/23 07/27/23 04:45 Rx tablet,extended release(part/cryst) epinephrine 0.3 mg/0.3 mL 0.3 mg (0.3 mL) IM Q15M PRN 05/31/23 07/24/23 Unknown Rx injection, auto-injector (EpiPen anaphylaxis #2 ea 2-Cecil) psyllium husk 3.4 gram/5.4 gram 1 tbsp PO DAILY PRN Constipation 05/31/23 07/24/2307/24/23 History oral powder (Metamucil) losartan 100 mg tablet 100 mg PO DAILY 07/24/23 07/24/23 07/26/23 History meloxicam 15 mg tablet 15 mg PO DAILY 07/24/23 07/24/23 07/20/23 History simvastatin 40 mg tablet 40 mg PO DAILY 07/24/23 07/24/23 07/26/23 History Allergies Allergy/AdvReac Type Severity Reaction Status Date / Time red wasp sting Allergy anaphylaxis Uncoded 07/27/23 07:10 PFSH PFSH: Medical History Arthralgia Bilateral carpal tunnel syndrome Cervical spondylosis with myelopathy and radiculopathy Chronic constipation Coronary artery disease Diastolic CHF Dyslipidemia Essential hypertension Switch from ibersartan to losartan due to availability of medication Hypokalemia Mild intermittent asthma, uncomplicated Primary osteoarthritis of left knee Surgical History H/O cervical spinal arthrodesis Previous back surgery S/P cervical spinal fusion S/P knee surgery Family History Mother Cancer Father Cancer Social History Smoking and tobacco/nicotine status: former use of tobacco/nicotine Quit status (tobacco/nicotine): has quit using Year quit tobacco: 1995 Second hand smoke exposure: No Alcohol intake: never Substance/Drug Use: never Adopted: No Caregiver/support person: Yes Lives independently: No Household members: spouse Housing: House Marital status: Current occupational status: employed Do you think of yourself as: Straight/Heterosexual Current gender identity: Male Special tigist needs: No Agree to transfusion: No Dietary Habits: Caffeine: Yes Caffeine intake frequency: carbonated beverages and coffee Vital Signs Vitals Signs: Last Vital Signs Temp 97.7 F 07/27/23 07:14 Pulse 77 07/27/23 07:14 Resp 18 07/27/23 07:14 BP 137/97 07/27/23 07:14 Pulse Ox 97 07/27/23 07:14 O2 Del Method Room Air 07/27/23 07:15 Weight: Weight last 48 hrs Weight 307 lb Physical Exam Narrative: EXAM NARRATIVE: EXAM NARRATIVE: Right kneeThe patient is a obese male in no obvious distress, most weight is through the midsection with minimal obesity noted?throughout his lower extremities.He has resting varus deformity of the?right knee roughly 10 degrees correctable on examinationHe has tenderness over the medial joint line. Motion is from full extension to 120 degreesHis patella tracks wellPositive?patellar rindGross motor and sensory intact of theright lower extremity normal hip range of motion withno pain or discomfort A&P Assessment and plan (1) Osteoarthritis of right knee: Qualifiers: Osteoarthritis type: primary Qualified Code(s): M17.11 - Unilateral primary osteoarthritis, right knee Plan Patient is here today with severe right knee degenerative joint disease clear to preoperative clearance process and plan to proceed with a right total knee arthroplasty Isauro robotic assisted. Patient understands and sounds procedure risk benefits complication alternatives with surgery elects proceed with surgical intervention all questions answered. Proceed with right total knee arthroplasty today Isauro robotic assisted. Coding Level of Care Code Acute Code for [facility] Diagnoses Osteoarthritis of right knee M17.11 Osteoarthritis type: primary
[2023-07-27] MEDS: ceFAZolin 2,000 MG in sodium chloride 0.9% (plus) 50 ML 100 MG IV (10:40)
[2023-07-27] MEDS: tranexamic acid 1,000 MG/100 ML PREMIX 600 MG IV ×2 (10:45→20:09)
[2023-07-27] MEDS: tranexamic acid 1,000 mg/10mL SDV 1000 MG XX (11:36)
[2023-07-27] MEDS: ROPivacaine 0.2% Premix 100 mL 200 MG INTRA-ARTI (11:36)
[2023-07-27] MEDS: EPINEPHrine 1 mg/mL INJ XX (11:36)
[2023-07-27] MEDS: vancomycin 1,000 MG SDV 1000 MG XX (12:03)
--- NOTE | 2023-07-27 12:28 | W.PM.BPON ---
Date of Procedure: 07/27/2023 Surgeon: Chris Mathews DO Motorman/Woman(s): Chano Mathews PA-C Procedure(s) performed: Right total knee arthroplasty, Isauro robotic assisted Findings of the procedure(s): Right knee severe degenerative joint disease, procedure went as planned for right total knee arthroplasty without complications Estimated blood loss: 25 mL Specimen(s) removed: Tibia and femur bone cuts removed Post-operative diagnosis: Right knee degenerative joint disease
--- NOTE | 2023-07-27 12:29 | P.OP_ITS ---
Operative Report Date of procedure: July 27, 2023 Surgeon: Chris Mathews DO Procedure: Preoperative diagnosis: Right knee degenerative joint disease Post-op diagnosis: Same Procedure done: Right total knee arthroplasty, cemented?robotic assisted Isauro Implants: [place] triathlon size 4 femur CR cemented?right Jame triathlon size?5 tibia universal baseplate cemented Jame triathlon symmetric patella size 33 mm Jame triathlon polyethylene 11mm Surgeon: Chris Mathews DO Estimated blood loss: 25 mL Tourniquet 66 minutes IV fluids: 1500 mL Urine output: none Complications: None Condition: stable Disposition: floor Brief History: Patient is a 53-year-old male with with chronic?right knee degenerative joint disease.? Patient has been worked up in the outpatient setting in the orthopedic office at this point time through shared decision making given his vlux-[id number]-otrq arthritis as well as failed conservative treatment, and pt would like to proceed with a?right total knee arthroplasty.? Through shared decision making elected to proceed with surgical intervention for?right total knee arthroplasty.? We talked about continued conservative treatment and surgical intervention as far as the?risk benefits complications alternatives surgical and nonsurgical treatment options.? At this point time understanding patient?risks with surgery he agrees to proceed with surgical intervention.? Once again??risk with surgery include but are not limited to make it better make it worse blood clot, heart attack, stroke, on the table, infection, injury to nerves or vessels, persistent pain, arthrofibrosis, implant failure.? Understanding these?risks patient agrees to proceed with surgical intervention consent was obtained in the office.? All questions answered. Procedure: Patient was seen and evaluated in the preoperative holding area.? Consent was?reviewed and signed with patient with plan for?right total knee arthroplasty.? All questions answered.? Correct extremity marked.? Patient seen and evaluated by the anesthesia department and once cleared for surgery was taken back to the operative suite.? Patient was placed into a supine position on the OR table.? All bony prominences were well-padded.? Patient was appropriately secured to the bed.? Patient underwent anesthesia per the anesthesia department.? Patient?received spinal anesthesia and? Navarro catheter was placed.? A nonsterile tourniquet was applied to the?right thigh.? At this point in time a final timeout performed.? Patient?received appropriate preoperative antibiotics and TXA. Next the?right lower extremity was then prepped and draped in standard orthopedic fashion. Esmarch tourniquet was used exsanguinate the?right lower extremity.? Tourniquet was insufflated to 250 mmHg. A standard anterior incision was made over midline of the knee.? Sharp scalpel excision through skin and subcutaneous tissue full-thickness skin flaps were made.? Fascia was elevated off of the extensor?retinaculum was stable with medial parapatellar arthrotomy was then made.? The performed standard sequential?releases..? Immediately on entry into the joint patient was found to have severe eburnated bone and tricompartmental arthritic changes noted.? With significant osteophyte formation.? Next the the patella was then stuffed and the knee was then flexed.?? Selina was placed superiorly around the anterior aspect of the femur this was freed of synovium and I subsequently then placed by 2 femur pins to establish my femur arrays for the ThriveHive?robot.? These were then placed bicortically and? femur array was then appropriately secured with appropriate visualization.? Next attention was turned towards the tibial?rays.? These were then drilled sequentially bicortically in parallel fashion and intraincisional.? I then placed my guide as well as my tibial array on in place.? This was appropriately secured and had excellent visualization with the Isauro?robot.? Next the tibial checkpoint as well as femur checkpoint were then placed.? At this point time I then subsequently established my head center as well as my medial lateral malleoli as well as my checkpoints.? Next utilizing standard Isauro technology I then mapped out the appropriate points and confirmation points around the femur as well as the tibia in standard fashion.? Once this was then done I then?removed all osteophytes in preparation for dynamic testing.? All os teophytes were?removed as well as I?removed the ACL and the PCL was excised due to its significant tearing and degeneration noted.? At this point time the knee was brought into full extension and we performed our standard evaluation of our gap balancing stressing his ligaments and extension as well as flexion appropriate adjustments were made to have appropriate gap balancing in both flexion and extension.? This plan for final counts.? We get a preoperative plan evaluating our implants which was a size 4 femur and a size 5 tibia.? Next we brought in the ThriveHive?robot and sequentially made our femur cuts.? All excess bony cuts were then?removed.? Finally we made our tibial cut.? Once this was done a standard PCL?retractor was then placed into this position I excised the medial and lateral meniscus.? The tibial cut was then subsequently?removed all excess bony debris was?removed.? I then utilized a lamina research hydrologist and?remove the posterior osteophytes.? At this point time sized the tibia and confirmed this was a size 5. I utilized our blunt probe to establish?rotation of tibial implant.? Once this was done I then placed my tibia size 5 trial in appropriate position and then subsequently placed tibial pins to hold this into place placed a size 11 mm poly as well as a size 4 femur which was appropriately impacted in place knee was then subsequently brought into extension. Trials were then assessed with 11mm poly and this was stable with varus valgus stress in extension as well as had symmetrical translation when brought into flexion demonstrating symmetrical gaps. I had excellent balance gaps in flexion and extension with varus and valgus stresses.? At this point I was satisfied with these implants these were then verified and opened on the back table size 5 tibia, size 4 femur,? size 11 mm polythickness.? We did confirm appropriate gap balancing and stresses as well as alignment utilizing? ThriveHive and were satisfied with this plan.? ?At this point time with my trials in place I then towel clip the patella everted this made appropriate measurements subsequently utilizing freehand technique performed by patellar?resurfacing this was confirmed to be appropriate?resection and subsequently sized to be a 33mm symmetric.? My drill peg guides were then clamped and appropriate position and appropriate position in the patella for appropriate tracking and parallel with the joint.? Pegs were drilled trial implant was placed and the knee was then subsequently?ranged and found to have excellent patellar tracking.? Femur pegs were then drilled.? Satisfied with our tibial placement?rotation I then utilized the keel punch and prepped the tibia.? At this point time all of our trial implants were?removed.? All checkpoints as well as guidepins and arrays were?removed and appropriate counts made.? The wound bed? was thoroughly irrigated and dried and prepped for cementation.? Cement was mixed on the back table.? Once cement was?ready this was then covered onto the tibia and the tibial baseplate was then impacted and all excess cement was?removed.? Next the polyethylene was then impacted into place on the tibial baseplate.? Next cement was placed onto the femur as well as under the femur implants and impacted in to place and all excess cement was extruded and?removed.? Knee was taken into full extension? to clear all excess cement was?removed.? Warm saline was placed over the joint.? I then towel clip patella and dried for cementation. cemented the patella into place.? This was all clamped and the cement was allowed to cure.? Thorough irrigation performed with pulse lavage.? I then placed my periarticular injection while the cement was curing.? Once cured the knee was taken through?range of motion and had excellent stability and gaps were balanced in flexion and extension.? Tourniquet was then deflated. hemostasis satisfactory with electrocautery. Thoroughly irrigation performed, vancomycin powder placed in the incision for infection prophylaxis given patient's obesity. Next I then subsequently closed the capsule with Ethibond suture as well as a?running strata fix suture.? Knee was then taken through?range of motion 30 times.? Next the skin was then closed in layered fashion of?running stratifix sutures of deep and subcutenous tissue and skin.? ?closed in flexion and Prineo glue was then placed over the incision this allowed to cure.? Incision was covered with yasemin dressing, with ABDs soft?roll and Massimo wrap.? Patient was then awakened from anesthesia and taken to PACU in stable condition. Disposition: Patient taken to PACU in stable condition will be admitted to the floor for pain control PT/OT weight-bear as tolerated?right lower extremity dressing changes as needed, DVT prophylaxis. Pain control. Patient will?receive appropriate postoperative antibiotics. patient will be seen today by the internal medicine team for medical management.? Patient will follow up with the office in 2 weeks.? Patient understands agrees with current plan.? All questions answered.
--- NOTE | 2023-07-27 13:01 | XR_ITS ---
WS: [id number] Exam: XR knee RT 1-2V [id number] Date/Time of Exam: 07/27/2023 1:03 PM Reason For Exam: Status post right TKA Comparison 10/01/2022. A RIGHT total knee replacement is in satisfactory position. Postoperative changes in the adjacent sof t tissues. IMPRESSION: 1. RIGHT total knee replacement in satisfactory position.
--- NOTE | 2023-07-27 13:15 | PM.PACU ---
PACU note Narrative: Patient is a 53-year-old male who just underwent a right total knee arthroplasty. Pt transferred to PACU in stable condition. Dressing is dry. pt is awake and alert. pt can wiggle toes and plantarflex and dorsiflex foot. pt able to perform straight leg raise, Femoral nerve intact. Distal pulses are palpable toes are warm and well-perfused. Cap refill is normal and under 2 seconds. Sensation to foot is intact. Pain is controlled. Exam: awake Disposition: admitted
[2023-07-27] MEDS: oxyCODONE 5 mg IR Tab/Cap PO ×3 (14:11→23:34)
--- NOTE | 2023-07-27 17:10 | ANE.PACU2 ---
Inpatient post-anesthesia follow up: Airway intact: Yes Vital signs: Temperature 98.0 F Pulse Rate 74 Respiratory Rate 17 Blood Pressure 110/73 Pulse Oximetry 98 Oxygen Delivery Me thod Room Air Oxygen Flow Rate 6 Fraction of Inspir ed Oxygen Hydration adequate: Yes Nausea and vomiting: No Pain level: 1 Mental status: Baseline
--- NOTE | 2023-07-27 17:43 | P.CONIM_ITS ---
Providers/Reason For Consult Consulting Physician/Specialty*: Frase/Hospitalist Reason for Consult*: Medical managment of obesity, hypertension, chf, cad post-op right TKA Requesting Physician: Dr Mathews Attending Physician: Chris Mathews DO Primary Care Provider: Kandi Swan MD History of Present Illness History of Present Illness Carlos Guillen is a 53 year old male [facility] for planned total right knee arthroplasty by Dr. Mathews. Procedure was robotic assisted with Isauro and cement. Patient did well in the immediate perioperative timeframe. It looks like his vitals were stable. I did see a notation of 1 dose of epinephrine given though I do not see indication of significant hypotension requiring ongoing doses. Blood pressures were as high as 170 systolic and as low as 110 systolic during surgery. He received 1500 mL of fluids with an estimated blood loss of 25 mL. Postoperatively he has received additional fluids. Currently denies any difficulty breathing. Has a little bit of a tickle in his throat which he attributes to having had ET tube in place. Just beginning to have pain in his right knee again. Previously responded well to ordered pain medication. He does have a history of heart failure with preserved ejection fraction. Last dose of losartan was on Thursday morning and last dose of bumetanide was on Thursday evening. He typically takes his diuretic therapy in the evenings. He has mild intermittent asthma with an obstructive component and last took a dose of as needed inhaler 2 days ago. He will typically have asthma exacerbations in the winter months. He has chronic constipation with last bowel movement this morning. He has been off of meloxicam and aspirin therapy leading up to surgery. Hospitalist were consulted postoperatively for medical management due to history of asthma, hypertension, heart failure preserved ejection fraction, nonobstructive coronary artery disease and a BMI greater than 50. History is obtained from discussion with Dr. Mathews as well as discussion with Mr. Guillen and his , Apple, who works for [employer] at the [facility]. Review of Systems General: Reports: Other (ROS as per HPI or as noted here) Const: Reports: change in weight (In anticipation of surgery) Card: Denies: chest pain Resp: Reports: dyspnea (Has had some episodes of shortness of breath/cough for which she took as ne) GI: Reports: constipation (Chronic, last bowel movement was this morning, takes psyllium regularly) : Denies: difficulty urinating Musc: Reports: joint pain (Currently right knee, postoperative) Andrea/Lymph: Denies: easy bleeding Medications/Allergies Home Medications Medication Instructions Recorded Confirmed Last Taken Type aspirin 81 mg tablet,delayed 81 mg PO DAILY #0 tabs 12/09/21 07/24/23 07/20/23 Rx release ipratropium 20 mcg-albuterol 100 1 puff inhalation QID PRN 11/13/22 07/27/23 07/26/23 Rx mcg/actuation mist for inhalation shortness of breath or wheezing #4 grams budesonide-formoterol HFA 160 2 puff inhalation BID 30 days 01/01/23 07/27/23 07/26/23 Rx mcg-4.5 mcg/actuation aerosol #10.2 grams inhaler (Symbicort) bumetanide 2 mg tablet 2 mg PO DIRECTED 90 days #180 03/23/23 07/24/23 07/26/23 Rx tabs potassium chloride 20 mEq 20 meq PO DIRECTED #135 tabs 05/26/23 07/24/23 07/27/23 04:45 Rx tablet,extended release(part/cryst) epinephrine 0.3 mg/0.3 mL 0.3 mg (0.3 mL) IM Q15M PRN 05/31/23 07/24/23 Unknown Rx injection, auto-injector (EpiPen anaphylaxis #2 ea 2-Cecil) psyllium husk 3.4 gram/5.4 gram 1 tbsp PO DAILY PRN Constipation 05/31/23 07/24/23 07/24/23 History oral powder (Metamucil) losartan 100 mg tablet 100 mg PO DAILY 07/24/23 07/24/23 07/26/23 History meloxicam 15 mg tablet 15 mg PO DAILY 07/24/23 07/24/23 07/20/23 History simvastatin 40 mg tablet 40 mg PO DAILY 07/24/23 07/24/23 07/26/23 History Allergies Allergy/AdvReac Type Severity Reaction Status Date / Time red wasp sting Allergy anaphylaxis Uncoded 07/27/23 07:10 PFSH Acute PFSH: Medical History (Updated 07/27/23 @ 19:17 by Ese Wilkins MD) Arthralgia Bilateral carpal tunnel syndrome Cervical spondylosis with myelopathy and radiculopathy Chronic constipation Coronary artery disease DDD (degenerative disc disease), lumbosacral Diastolic CHF Dyslipidemia Essential hypertension Switched from ibersartan to losartan due to availability of medication History of cardiovascular stress test 01/2023 Hymenoptera allergy has epi pen Lumbar back pain with radiculopathy affecting left lower extremity Mild intermittent asthma, uncomplicated Primary osteoarthritis of left knee Surgical History (Updated 07/27/23 @ 18:00 by Ese Wilkins MD) H/O cervical spinal arthrodesis History of cardiac catheterization 2004 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 No significant stenosis. Previous back surgery S/P cervical spinal fusion S/P knee surgery Family History Mother Cancer Father Cancer Social History Smoking and tobacco/nicotine status: former use of tobacco/nicotine Quit status (tobacco/nicotine): has quit using Year quit tobacco: 1995 Second hand smoke exposure: No Alcohol intake: never Substance/Drug Use: never Adopted: No Caregiver/support person: Yes Lives independently: No Household members: spouse Housing: House Marital status: Current occupational status: employed Do you think of yourself as: Straight/Heterosexual Current gender identity: Male Special tigist needs: No Agree to transfusion: No Vitals/I&O/Wt Last Vital Signs Temp 98.6 F 07/27/23 16:35 Pulse 99 07/27/23 16:35 Resp 17 07/27/23 16:35 BP 139/69 07/27/23 16:35 Pulse Ox 97 07/27/23 16:35 O2 Del Method Room Air 07/27/23 16:35 O2 Flow Rate 6 07/27/23 13:10 07/27/23 07/27/23 07/27/23 06:59 14:59 22:59 Intake Total 2250 / 2250 Output Total 25 / 25 Balance 2225 / 2225 Weight last 48 hrs Weight 95.254 kg Weight 139.253 kg Physical Exam Narrative: Patient is awake and alert, able to provide history. Normocephalic. 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 Lungs are clear to auscultation bilaterally without any rales rhonchi or w heezes noted. Cardiovascular exam reveals a regular rate and rhythm. No murmurs gallops or rubs noted. Abdomen is soft, nontender with positive bowel sounds. Extremities no pitting edema noted to left lower extremity. Right lower extremity dressing is clean dry and intact. Patient can move toes. Sensation is slightly decreased in the right foot compared to the left foot. Speech is clear, face symmetric. No abnormal movements. Data Other Labs: Laboratory Last Values Blood Type A Positive 07/27/23 07:35 Rho(D) Type Rh positive 07/27/23 07:35 Antibody Screen Negative 07/27/23 07:35 Other data: Laboratory Tests 07/15/22 06/16/23 07/22/23 09:17 10:18 09:01 WBC 8.34 Hgb 15.90 Plt Count 321 Total Bilirubin 1.1 AST 13 ALT 7 Alkaline Phosphatase 91 NT-Pro-B Natriuret Pep 5 Total Protein 7.5 Albumin 4.3 07/22/23 09:01 Sodium 141 Potassium 3.5 Chloride 99 Carbon Dioxide 27 BUN 16 Creatinine 1.1 GFR Calculation 69.5 L Glucose 110 Calcium 9.3 Last echo 12/03 with EF 55 %. no gross wall motion abnormalities noted. Last stress test results in 01/2023 showed attenuation artifact in inferior and apical villa but no evidence of ischemia with normal EF notated. A&P Assessment and plan (1) Status post total right knee replacement using cement: POD#0 (2) Diastolic CHF: Chronic, not acute, preserved ejection fraction last echo, on chronic bumex with potassium replacement plus ARB Qualifiers: Heart failure chronicity: chronic Qualified Code(s): I50.32 - Chronic diastolic (congestive) heart failure (3) Essential hypertension: Controlled with chronic diuretic and ARB treatment (4) Dyslipidemia: Chronically on statin (5) Coronary artery disease: Historically non-obstructive disease, stress testing performed in 01/2023; has followed with Dr Zaman outpatient Qualifiers: Associated angina: without angina Coronary Disease-Associated Artery/Lesion type: [place] artery [place] vs. transplanted heart: [place] heart Qualified Code(s): I25.10 - Atherosclerotic heart disease of [place] coronary artery without angina pectoris (6) Mild intermittent asthma, uncomplicated: Has long and short acting inhalers for regular use (7) Snores: Not formally diagnosed with sleep apnea (never had sleep study) but on previous admissions noted to snore (8) BMI 50.0-59.9, adult: Has lost weight from a peak of 150 kg to current 139 kg in preparation for this surgery Plan Home medications address as follows: 2mg daily bumex rather than alternating 2mg and 4mg for now, 20meq K+ daily rather than alternating doses, half usual losartan, continuation of home statin, nebulizer respiratory medication equivalents, resumption of home aspirin, continued holding of meloxicam while on toradol, and resumption of home psyllium Will decrease IVF rate overnight given history of heart failure with preserved ejection fraction; monitor for signs of fluid overload as currently positive about 2L Can give extra diuresis if needed Monitor urine output Noted he received epinephrine guilherme-op times one dose Follow up am labs already ordered Agree with eliquis for DVT prophylaxis. has SCDs as well while in hospital Pain control as per orthopedics PT and OT evaluations Navarro removal within 24 hours post-op Post-operative antibiotics ordered Post-operative dressing and wound management as per orthopedics Agree with incentive spirometer and prn oxygen, will need to monitor for signs of sleep apnea post-op this evening DC plans at this time are home with home health tomorrow as per discussion with Dr Mathews Pending results of morning labs, anticipate resumption of all home medications at usual dosing likely (though will defer meloxicam resumption to orthopedics pending outpt post-op pain management plan) Discussed with patient the importance of considering sleep study to evaluate for sleep apnea, explaining that untreated sleep apnea can worsen hypertension and heart failure over time, as well as increase risk of arrhythmias; after discussion, patient indicates he will consider having this done after recovers from knee surgery and before consideration given to future neck surgery Supportive care otherwise FULL CODE Will follow while patient is here and address medical issues as needed Patient and given opportunity for questions, plans as described discussed with them Thank you for consultation Consult Attestations Medical Necessity Statement: as per orthopedics Diagnoses Status post total right knee replacement using cement Z96.651 Diastolic CHF I50.32 Heart failure chronicity: chronic Essential hypertension I10 Dyslipidemia E78.5 Coronary artery disease I25.10 Associated angina: without angina Coronary Disease-Associated Artery/Lesion type: [place] artery [place] vs. transplanted heart: [place] heart Mild intermittent asthma, uncomplicated J45.20 Snores R06.83 BMI 50.0-59.9, adult Z68.43
[2023-07-27] MEDS: calcium carb-vit d 600mg/400unit 1 Tablet 1 EACH PO (18:31)
[2023-07-27] MEDS: docusate sodium 100 mg Capsule PO (18:31)
[2023-07-27] MEDS: iron polysaccharide complex 150 mg Capsule PO (18:31)
[2023-07-27] MEDS: mupirocin oint 22 gm 1 APPLIC NASAL (18:33)
[2023-07-27] MEDS: chlorhexidine gluconate 0.12% Btl 473 mL 30 ML MUCOUS MEM ×2 (18:33→20:15)
[2023-07-27] MEDS: lactated ringers 1,000 ML 100 ML IV (18:34)
[2023-07-27] MEDS: ceFAZolin 3,000 MG in sodium chloride 0.9% (100 ml) 100 ML 200 MG IV (20:43)
[2023-07-28] VITALS (7 sets, daily range): BP systolic 108–165; BP diastolic 61–89; PULSE 74–85; RESP 16–20; TEMP 36.7–36.9; O2SAT 96–98
[2023-07-28] MEDS: acetaminophen 1,000 MG/100 ML PIGGYBACK 400 MG IV ×2 (02:26→10:23)
[2023-07-28] MEDS: ceFAZolin 3,000 MG in sodium chloride 0.9% (100 ml) 100 ML 200 MG IV ×2 (02:44→11:26)
[2023-07-28 06:11] LABS: Basophils # 0.1 10^3/uL (0.0-0.1); Basophils % 0.4 %; Eosinophils # 0.1 10^3/uL (0.0-0.8); Eosinophils % 0.3 %; Hematocrit 41.7 % (37-53); Lymphocytes # 1.8 10^3/uL (0.8-4.8); Lymphocytes % 9.1 %; Mean Corpuscular HGB Conc 33.6 g/dL (30-55); Mean Corpuscular Hemoglobin 32.8 pg (27-33); Mean Corpuscular Volume 97.7 fl (82-101); Mean Platelet Volume 9.7 fL (7.4-10.4); Monocytes # 1.4 10^3/uL (0.2-0.9); Monocytes % 6.9 %; Neutrophils # 16.45 10^3/uL (1.8-7.7); Neutrophils % 82.6 %; Nucleated Red Blood Cells % 0 %; Platelet Count 331 10^3/cmm (157-399); Red Blood Count 4.27 10^6/uL (3.85-5.65); Red Cell Distribution Width 13.2 % (12.1-15.1); White Blood Count 19.87 10^3/uL (3.29-11.43)
[2023-07-28] MEDS: oxyCODONE 5 mg IR Tab/Cap PO ×2 (06:27→10:22)
[2023-07-28 06:35] LABS: Anion Gap 14.9 (5-19); Blood Urea Nitrogen 17 mg/dL (6-20); Calcium 9.4 mg/dL (8.5-10.5); Carbon Dioxide 29 mmol/L (22-29); Chloride 99 mmol/L (98-107); Glomerular Filtration Rate 69.5 mL/min (90-130); Glucose 144 mg/dL (65-115); Osmolality Calculated 292 mOsm/kg (285-295); Potassium 3.9 mmol/L (3.5-5.1); Sodium 139 mmol/L (136-145)
[2023-07-28] MEDS: budesonide 0.5 mg/2 mL Neb INHALATION (08:32)
[2023-07-28] MEDS: aspirin 81 mg EC Tablet PO (08:39)
[2023-07-28] MEDS: atorvastatin 40 mg Tablet 20 MG PO (08:39)
[2023-07-28] MEDS: iron polysaccharide complex 150 mg Capsule PO (08:39)
[2023-07-28] MEDS: docusate sodium 100 mg Capsule PO (08:40)
[2023-07-28] MEDS: calcium carb-vit d 600mg/400unit 1 Tablet 1 EACH PO (08:40)
[2023-07-28] MEDS: potassium chloride ER 20 mEq Tablet PO (08:40)
[2023-07-28] MEDS: psyllium powder Pkt 1 PACKET PO (08:40)
[2023-07-28] MEDS: apixaban 5 mg Tablet 2.5 MG PO (08:40)
[2023-07-28] MEDS: multivitamin therapeutic Tablet 1 TAB PO (08:40)
[2023-07-28] MEDS: bumetanide 1 mg Tablet 2 MG PO (08:40)
[2023-07-28] MEDS: chlorhexidine gluconate 0.12% Btl 473 mL 30 ML MUCOUS MEM (08:41)
--- NOTE | 2023-07-28 08:57 | PC.CHAP ---
Pastoral Care Encounter/Spiritual Assessment Type of Contact [] Declined department sales manager visit [] Patient/Family/Request visit [] Outpatient visit [] Follow-up visit [] Physician referral [] Code/Alert [x] Routine visit [] Staff referral [] Actively dying [] Patient sleeping [] Family support [] [] Out of room [] Palliative care [] [] Receiving care in room [] Pre-surgical visit [] Trauma [] Long length of stay [] ICU visit [] Other: Relational/Emotional Strength [x] Patient feels connected with others/family/visitors/staff [] Distress [] Loneliness/isolation [] Abandonment Spirituality of Patient [x] Person of Natalia [] Attends Restorationism of their Natalia [x] Believes in Prayer [] Reads Bible or Druze materials [] There are Spiritual issues to be addressed Optical Effects Line Up Person Interventions [x] Prayer [] Active listening [] Non-anxious presence [x] Spiritual/emotional support [] Crisis/trauma care [] Spiritual counseling [] Bereavement support [] Provided bereavement packet [] Provided Bible/devotional materials [] Provided toy/stuffed animal, coloring book to patient or family member [] Provided Communion [] Anointing/[place] [] Salvation [x] Completed spiritual assessment [] Other: Impact on Illness or Injury [] Angry [] Fearful [] Anxious [] Often cries [] Exhaustion [] Unable to work [] Unable to attend restorationism [] Unable to walk/stand [] Unable to read [] Unable to drive [] Unable to eat/drink [] Unable to sleep [] Unable to be with family [] Patient intubated [] Other: Summary Time spent with patient 5 min
--- NOTE | 2023-07-28 11:35 | PM.PN ---
Subjective Subjective: Seen today. Family member present at bedside. States his pain is about 3-4 and he is already requested the nurse for pain medication. He has been able to walk as well. Has no other concerns or complaints at this time. Vitals/I&O/Wt Last Vital Signs Temp 98.4 F 07/28/23 11:03 Pulse 79 07/28/23 11:03 Resp 18 07/28/23 11:03 BP 165/89 07/28/23 11:03 Pulse Ox 98 07/28/23 11:03 O2 Del Method Room Air 07/28/23 11:03 O2 Flow Rate 6 07/27/23 13:10 07/27/23 07/28/23 07/28/23 22:59 06:59 14:59 Intake Total 540 / 2790 1220 / 4010 800 / 800 Output Total 0 / 25 Balance 540 / 2765 1220 / 3985 800 / 800 Weight last 48 hrs Weight 139.253 kg Weight 95.254 kg Weight 139.253 kg Physical Exam Narrative: Seen sitting up in recliner appearing comfortable Lungs clear to auscultation bilaterally Abdomen soft Right lower extremity Band-Aid present at the knee area, no edema appreciated bilateral lower extremities Data 07/28/23 05:13 07/28/23 05:13 A&P Assessment and plan (1) Mild intermittent asthma, uncomplicated: (2) Primary osteoarthritis of left knee: (3) Dyslipidemia: (4) Diastolic CHF: Qualifiers: Heart failure chronicity: chronic Qualified Code(s): I50.32 - Chronic diastolic (congestive) heart failure (5) Coronary artery disease: Qualifiers: Coronary Disease-Associated Artery/Lesion type: [place] artery [place] vs. transplanted heart: [place] heart Associated angina: without angina Qualified Code(s): I25.10 - Atherosclerotic heart disease of [place] coronary artery without angina pectoris (6) Essential hypertension: (7) Osteoarthritis of right knee: Qualifiers: Osteoarthritis type: primary Qualified Code(s): M17.11 - Unilateral primary osteoarthritis, right knee (8) GERD (gastroesophageal reflux disease): Qualifiers: Esophagitis presence: without esophagitis Qualified Code(s): K21.9 - Gastro-esophageal reflux disease without esophagitis (9) DDD (degenerative disc disease), lumbosacral: (10) BMI 50.0-59.9, adult: (11) Status post total right knee replacement using cement: Plan #Status post total right knee replacement using cement postop day 1 #Diastolic heart failure #Hypertension #Dyslipidemia #CAD #Mild intermittent asthma #Obesity #Leukocytosis ? WBC count 17,000 today most likely reactive as patient is postop ? Appears euvolemic not in exacerbation at this time. Continue home Bumex and potassium replacement ? Continue home antihypertensives, statin ? DuoNeb every 6 hours as needed ? Recommend sleep study as outpatient to rule out obstructive sleep apnea as patient does have a history of snoring ? Discharge planning as per orthopedic surgery team ? Agree with Eliquis 2.5 twice daily for DVT prophylaxis ? Continue aspirin ? Medicine will continue to follow and address medical issues as they arise. ? Encourage incentive spirometer ? PT OT as per orthopedic surgery full code Attestations Medical Necessity Statement*: defer to ortho surgery Diagnoses Mild intermittent asthma, uncomplicated J45.20 Primary osteoarthritis of left knee M17.12 Dyslipidemia E78.5 Diastolic CHF I50.32 Heart failure chronicity: chronic Coronary artery disease I25.10 Coronary Disease-Associated Artery/Lesion type: [place] artery [place] vs. transplanted heart: [place] heart Associated angina: without angina Essential hypertension I10 Osteoarthritis of right knee M17.11 Osteoarthritis type: primary GERD (gastroesophageal reflux disease) K21.9 Esophagitis presence: without esophagitis DDD (degenerative disc disease), lumbosacral M51.37 BMI 50.0-59.9, adult Z68.43 Status post total right knee replacement using cement Z96.651
--- NOTE | 2023-07-28 12:05 | P.PN_ITS ---
Subjective Subjective: Patient is a 53-year-old male that is 1 day postop right total knee arthroplasty. Denies any acute events overnight. Patient's pain is well controlled. He has seen physical therapy today and has gotten up and ambulated multiple times. Denies any other complaints. Vitals/I&O/Wt Last Vital Signs Temp 98.4 F 07/28/23 11:03 Pulse 79 07/28/23 11:03 Resp 18 07/28/23 11:03 BP 165/89 07/28/23 11:03 Pulse Ox 98 07/28/23 11:03 O2 Del Method Room Air 07/28/23 11:03 O2 Flow Rate 6 07/27/23 13:10 07/27/23 07/28/23 07/28/23 22:59 06:59 14:59 Intake Total 540 / 2790 1220 / 4010 900 / 900 Output Total 0 / 25 Balance 540 / 2765 1220 / 3985 900 / 900 Weight last 48 hrs Weight 307 lb Weight 210 lb Weight 307 lb Physical Exam Const: COMMON NORMALS: no acute distress and alert Resp: COMMON NORMALS: normal respiratory effort EFFORT & INSPECTION: Yes able to speak in complete sentences and No respiratory distress Extremity: NARRATIVE EXTREMITY EXAM: Right leg--Dressing is dry and in place. pt is awake and alert. pt can wiggle toes and plantarflex and dorsiflex foot. pt able to perform straight leg raise, Femoral nerve intact. Distal pulses are palpable toes are warm and well- perfused. Sensation to foot is intact. Pain is controlled. Neuro: SENSORIUM/ORIENTATION: Yes alert Data 07/28/23 05:13 07/28/23 05:13 A&P Assessment and plan (1) Status post total right knee replacement using cement: Plan Plan: -Imaging and Labs reviewed -Hospitalist on board for medical management. -DVT prophylaxis- elquis 2.5 mg BID -Weight-bear as tolerated on right leg -Pain control -PT Pt is doing well 1 day postop Right total knee replacement. Pt is cleared for discharge home today. Attestations Medical Necessity Statement*: Ongoing care for right knee total arthroplasty Coding Level of Care Code Acute Code for Chg Fwd Diagnoses Status post total right knee replacement using cement Z96.651
--- NOTE | 2023-07-28 23:08 | P.DS_ITS ---
Discharge Providers Date of Admission: 07/27/23 16:55 Date of Discharge: July 28, 2023 Attending Provider at Admission: Chris Mathews DO Attending Provider at Discharge: Chris Mathews DO Consults: Dr. Wilkins?hospitalist Primary Care Provider: Kandi Swan MD Diagnoses at Discharge Discharge Diagnosis (1) Status post total right knee replacement using cement: Status: Acute Permanent problem details: robotic assisted EVIE Reason for Visit Reason for Visit: M17.11 Brief History: Status post right total knee arthroplasty Hospital Course Hospital Course Patient presented to the preoperative holding area with plan for right total knee arthroplasty after patient has been worked up in the outpatient setting for failed conservative treatment of right knee degenerative joint disease.? Once cleared by anesthesia for surgery patient subsequently was taken back to the operative suite? underwent? anesthesia per anesthesia department and then subsequently underwent a right total knee arthroplasty.? Procedure was performed without any complications patient was taken to PACU in stable condition patient? recovered well in PACU and then was admitted to the floor postoperatively internal medicine was consulted and on board for medical management and assistance with care.? Patient received appropriate PT/OT, postoperative antibiotics, postoperative TXA, pain control, postoperative DVT prophylaxis.? Elevation and ice.? Patient encouraged for knee range of motion allowed weightbearing as tolerated to the operative lower extremity.? Grazyna dressing was changed as needed, labs were monitored daily.?? Patient recovered well postoperatively and worked well and progressed well with therapy.? It was determined on postoperative day 1 the patient was stable for discharge from an orthopedic standpoint and medicine.? Patient was comfortable with discharge and plan was discharged home.? Patient received appropriate discharge instructions as well as pain medication and DVT prophylaxis postoperatively.? Given his obesity we will give him a prescription of outpatient antibiotics as well pos toperatively for surgical infection prophylaxis.? Given appropriate instructions for? dressing management.? Patient will follow-up with Dr. Mathews/orthopedics in the office in 2 weeks.? All questions answered.? Understand if there is any issues questions or concerns and contact the office. Physical Exam Const: COMMON NORMALS: no acute distress and alert Resp: COMMON NORMALS: normal respiratory effort EFFORT & INSPECTION: Yes able to speak in complete sentences and No respiratory distress Extremity: NARRATIVE EXTREMITY EXAM: Right leg--Dressing is dry and in place. pt is awake and alert. pt can wiggle toes and plantarflex and dorsiflex foot. pt able to perform straight leg raise, Distal pulses are palpable toes are warm and well-perfused. Sensation to foot is intact. Pain is controlled. Neuro: SENSORIUM/ORIENTATION: Yes alert Discharge Data Studies Completed and Pending Completed Studies During Hospitalization Category Date Time Status XR knee RT 1-2V [id number] Routine Exams 07/27/23 13:01 Completed Laboratory Results WBC 19.87 10^3/uL (3.29-11.43) H 07/28/23 05:13 RBC 4.27 10^6/uL (3.85-5.65) 07/28/23 05:13 Hgb 14.00 g/dL (11.27-16.99) 07/28/23 05:13 Hct 41.7 % (37-53) 07/28/23 05:13 MCV 97.7 fl (82-101) 07/28/23 05:13 MCH 32.8 pg (27-33) 07/28/23 05:13 MCHC 33.6 g/dL (30-55) 07/28/23 05:13 RDW 13.2 % (12.1-15.1) 07/28/23 05:13 Plt Count 331 10^3/cmm (157-399) 07/28/23 05:13 MPV 9.7 fL (7.4-10.4) 07/28/23 05:13 Neut % (Auto) 82.6 % 07/28/23 05:13 Lymph % (Auto) 9.1 % 07/28/23 05:13 Brantley % (Auto) 6.9 % 07/28/23 05:13 Eos % (Auto) 0.3 % 07/28/23 05:13 Baso % (Auto) 0.4 % 07/28/23 05:13 Neut # (Auto) 16.45 10^3/uL (1.8-7.7) H 07/28/23 05:13 Lymph # (Auto) 1.8 10^3/uL (0.8-4.8) 07/28/23 05:13 Br[place]ley # (Auto) 1.4 10^3/uL (0.2-0.9) H 07/28/23 05:13 Eos # (Auto) 0.1 10^3/uL (0.0-0.8) 07/28/23 05:13 Baso # (Auto) 0.1 10^3/uL (0.0-0.1) 07/28/23 05:13 Nucleated RBC % (auto) 0 % 07/28/23 05:13 Nucleated RBCs # 0.0 /100WBC 07/28/23 05:13 Sodium 139 mmol/L (136-145) 07/28/23 05:13 Potassium 3.9 mmol/L (3.5-5.1) 07/28/23 05:13 Chloride 99 mmol/L (98-107) 07/28/23 05:13 Carbon Dioxide 29 mmol/L (22-29) 07/28/23 05:13 Anion Gap 14.9 (5-19) 07/28/23 05:13 BUN 17 mg/dL (6-20) 07/28/23 05:13 Creatinine 1.1 mg/dL (0.7-1.2) 07/28/23 05:13 GFR Calculation 69.5 mL/min (90-130) L 07/28/23 05:13 Glucose 144 mg/dL (65-115) H 07/28/23 05:13 Calculated Osmolality 292 mOsm/kg (285-295) 07/28/23 05:13 Calcium 9.4 mg/dL (8.5-10.5) 07/28/23 05:13 Blood Type A Positive 07/27/23 07:35 Rho(D) Type Rh positive 07/27/23 07:35 Antibody Screen Negative 07/27/23 07:35 Vitals Last Vital Signs Temp 98.4 F 07/28/23 11:03 Pulse 79 07/28/23 11:03 Resp 18 07/28/23 11:03 BP 165/89 07/28/23 11:03 Pulse Ox 98 07/28/23 11:03 O2 Del Method Room Air 07/28/23 11:03 O2 Flow Rate 6 07/27/23 13:10 Discharge Plan Discharge Patient Disposition: Home Condition: Stable Prescriptions: New ondansetron 4 mg tablet,disintegrating 4 mg PO Q8H PRN (Reason: nausea and vomiting) 3 Days Qty: 9 0RF Eliquis 2.5 mg tablet 2.5 mg PO BID 14 Days Qty: 28 0RF cephalexin 500 mg capsule 500 mg PO Q8H 7 Days Qty: 21 0RF Percocet 5-325 mg tablet 1 tab PO Q6H PRN (Reason: pain) 7 Days Qty: 28 0RF Continued ipratropium-albuterol 20-100 mcg/actuation mist 1 puff inhalation QID PRN (Reason: shortness of breath or wheezing) Qty: 4 5RF budesonide-formoterol [Symbicort] 160-4.5 mcg/actuation HFA aerosol inhaler 2 puff inhalation BID 30 Days Qty: 10.2 5RF bumetanide 2 mg tablet 2 mg PO DIRECTED 90 Days Qty: 180 1RF Rx Instructions: Alternate 2mg (one tab) every other day and 4mg (2 tabs) every other day Metamucil 3.4 gram/5.4 gram powder 1 tbsp PO DAILY PRN (Reason: Constipation) Rx Instructions: mix into at least 8 oz of water or juice before administering epinephrine [EpiPen 2-Cecil] 0.3 mg/0.3 mL auto-injector 0.3 mg IM Q15M PRN (Reason: anaphylaxis) Qty: 2 0RF potassium chloride 20 mEq tablet,ER particles/crystals 20 meq PO DIRECTED Qty: 135 3RF Rx Instructions: Alternate 1 tab one day & 2 tabs the next day simvastatin 40 mg tablet 40 mg PO DAILY Rx Instructions: TAKE ONE TABLET BY MOUTH every DAY losartan 100 mg tablet 100 mg PO DAILY Rx Instructions: TAKE ONE TABLET BY MOUTH every DAY Discontinued meloxicam 15 mg tablet 15 mg PO DAILY Rx Instructions: TAKE ONE TABLET BY MOUTH every DAY with food aspirin 81 mg Tablet,Delayed Release (Dr/Ec) 81 mg PO DAILY Qty: 0 0RF Discharge Orders: Discharge Order (Routine); Ordered 07/28/23 Ordered By: Chris Mathews Other Ambulatory Orders: Physical Therapy Eval and Treat Outpatient (Order) Timeframe: 2 Days Facility: [facility] - Location: Physical Therapy [facility] Ordered By: Chris Mathews Referrals: Chris Mathews DO [Physician] - 08/13/23 9:30 am Discharge Diet: Advance as tolerated Discharge Activity: Limit activity as instructed Patient Instructions: Cephalexin (By mouth), Oxycodone/Acetaminophen (By mouth), Ondansetron (By mouth), Apixaban (By mouth) (Eliquis), Total Knee Replacement (DC), Joint Replacement Stoplight Activity Restrictions/Additional Instructions: Ortho DC instructions Keep incisions clean dry and intact, leave Grazyna bandage dressings with battery pack on in place for 7 days. You can disconnect battery pack and leave dressing on and rinse in shower. after that may rinse incisions with warm soapy water pat dry and redress with a dry dressing. Patient may weight-bear as tolerate to the operative extremity Utilize crutches as needed Encourage knee range of motion Ice and elevate as needed for pain and swelling Take pain medication as prescribed Take antinausea medication as needed The prescribed Eliquis twice daily for the next 14 days for blood clot pr evention May supplement for pain with ibuprofen [id number] as needed No baths or soaks Follow-up in the orthopedic office in 2 weeks Contact the office for any questions or concerns Discharge Attestations Time Spent in Discharge Care*: less than 30 min Quality Metrics Clinical Quality Measures [ No reported AMI, CVA or VTE this stay] Coding Level of Care Code Acute Code for Chg Fwd Diagnoses Status post total right knee replacement using cement Z96.651 Time Spent (min) 25
== END 2023-07-28 14:59 | disposition home or self-care (01) ==
LOC: MEDSURG 16:57
PROVIDERS: Admitting Provider Student in an Organized Health Care Education/Training Program; PCP Family Medicine; Visit Provider Student in an Organized Health Care Education/Training Program
PROC: 8E0Y0CZ Robotic Assisted Procedure of Lower Extremity, Open Approach (ICD-10-PCS; CPT 27447; principal; 2023-07-27 08:45)
DX: M17.11 Unilateral primary osteoarthritis, right knee (principal); Z79.82 Long term (current) use of aspirin; I11.0 Hypertensive heart disease with heart failure; I50.30 Unspecified diastolic (congestive) heart failure; Z87.891 Personal history of nicotine dependence
CPT/HCPCS: 20985; 27447; 36415; 73560; 80048; 85025; 86850; 86900; 94640; 97110; 97116; 97161; 97530; C1776; G0378; J0131; J0171; J0330; J0690; J1100; J1885; J2250; J2405; J2704; J2795; J3010; J3370; J7030; J7120; J7626

== ENCOUNTER 2023-07-29 06:00 | Outpatient (RCR) | payer OTHER, SELFPAY | END 2023-08-13 23:59 | disposition home or self-care (01) | LOC: MPT 06:00 | PROVIDERS: Visit Provider Student in an Organized Health Care Education/Training Program | DX: Z98.890 Other specified postprocedural states (principal) | CPT/HCPCS: 97110; 97140; 97161; 97530 ==

== ENCOUNTER → 2023-08-13 09:49 | Outpatient (BNVA) | payer OTHER, SELFPAY | PROVIDERS: Visit Provider Physician Assistant | DX: Z96.651 Presence of right artificial knee joint (principal) | CPT/HCPCS: 73560; 73565 ==

== ENCOUNTER 2023-08-14 06:00 | Outpatient (RCR) | payer OTHER, SELFPAY | END 2023-09-13 23:59 | disposition home or self-care (01) | LOC: MPT 06:00 | PROVIDERS: Visit Provider Student in an Organized Health Care Education/Training Program | DX: Z98.890 Other specified postprocedural states (principal) | CPT/HCPCS: 97110; 97530 ==

== ENCOUNTER 2023-09-14 06:00 | Outpatient (RCR) | payer OTHER, SELFPAY | END 2023-09-23 23:59 | disposition home or self-care (01) | LOC: MPT 06:00 | PROVIDERS: Visit Provider Student in an Organized Health Care Education/Training Program | DX: Z98.890 Other specified postprocedural states (principal) | CPT/HCPCS: 97110; 97530 ==

== ENCOUNTER → 2023-09-22 10:46 | Outpatient (BNVA) | payer OTHER, SELFPAY | PROVIDERS: Visit Provider Student in an Organized Health Care Education/Training Program | DX: Z96.651 Presence of right artificial knee joint (principal) | CPT/HCPCS: 73560; 73565 ==

== ENCOUNTER → 2023-11-12 08:28 | Outpatient (BNVA) | payer OTHER, SELFPAY | PROVIDERS: PCP Family Medicine; Referring Provider Family Medicine; Visit Provider Family Medicine | DX: M77.8 Other enthesopathies, not elsewhere classified (principal) | CPT/HCPCS: 73030 ==

== ENCOUNTER → 2023-12-08 13:30 | Outpatient (BNVA) | payer OTHER, SELFPAY | PROVIDERS: PCP Family Medicine; Visit Provider Physician Assistant | DX: Z96.651 Presence of right artificial knee joint (principal) | CPT/HCPCS: 73560; 73565 ==

== ENCOUNTER → 2023-12-27 16:03 | Outpatient (BNVA) | payer OTHER, SELFPAY | PROVIDERS: PCP Family Medicine; Visit Provider Emergency Medicine | DX: I25.10 Atherosclerotic heart disease of native coronary artery without angina pectoris (principal); R07.9 Chest pain, unspecified | CPT/HCPCS: 93005 ==

== ENCOUNTER 2023-12-28 13:06 | Emergency (ER) | payer OTHER, SELFPAY ==
--- NOTE | 2023-12-28 13:09 | ECG_ITS ---
[facility] Test Date: 2023-12-28 Pat Name: Carlos Guillen Department: Room: Gender: Male [employer]: : 1970 Requested By: Issa Arevalo Order Number: [id number] Reading MD: Sandip Chua M.D. Measurements Intervals [place] Rate: 75 P: 52 [place]: 168 QRS: 67 QRSD: 106 T: 22 QT: 374 QTc: 418 Interpretive Statements SINUS RHYTHM LOW QRS VOLTAGE IN PRECORDIAL LEADS [QRS DEFLECTION < 1.0 mV IN CHEST LEADS] Compared to ECG 12/08/2021 17:56:16 Low QRS voltage now present Intraventricular conduction delay no longer present Electronically Signed On 12-28-2023 19:27:49 CDT by Sandip Chua M.D. [id number]
--- NOTE | 2023-12-28 13:09 | XR_ITS ---
WS: [id number] Exam: XR chest 1V portable [id number] Date/Time of Exam: 12/28/2023 1:13 PM Reason For Exam: cp Comparison 12/08/2021. Findings: The lungs are clear and fully expanded. Costophrenic angles are sharp. No infiltrates. Bronchovascula r relief appears normal. Cardiac silhouette is unremarkable. Bony elements are intact. IMPRESSION: Unremarkable chest radiograph.
[2023-12-28 13:14] VITALS: BP 135/87; PULSE 80; RESP 16; TEMP 36.7; O2SAT 99
--- NOTE | 2023-12-28 13:25 | ED_ITS ---
HPI - Chest Pain 2 General: Chief Complaint: Chest Pain Stated Complaint: Chest pains Time Seen by Provider: 12/28/23 13:19 Source: patient Mode of arrival: ambulatory Limitations: no limitations History of Present Illness: 53-year-old male states that he has been having a pressure type chest pain yesterday and went to [facility] had an EKG done there that was negative he states that today he had felt lightheaded polys ago passed out he had some pain in his right jaw and called EMS they did an EKG that offered to bring with her but he decided to drive himself that he is feeling improved currently he does have a history of heart failure no known history of coronary artery disease. Associated symptoms: Deny abdominal pain, dyspnea, fever(s), nausea or vomiting Review of Systems 2 Const: Denies: fever(s), chills, body aches or change in appetite ENMT: Denies: throat pain or dental pain Card: Reports: chest pain and pre-syncope Resp: Denies: dyspnea GI: Denies: abdominal pain, nausea, vomiting or diarrhea : Denies: dysuria Musc: Denies: neck pain or back pain Skin/Breast: Denies: rash Neuro: Denies: headache(s) PFSH ED 2 PFSH: Medical History Hymenoptera allergy has epi pen History of cardiovascular stress test 01/2023 Lumbar back pain with radiculopathy affecting left lower extremity DDD (degenerative disc disease), lumbosacral Arthralgia Essential hypertension Switched from ibersartan to losartan due to availability of medication Coronary artery disease Diastolic CHF Dyslipidemia Primary osteoarthritis of left knee Mild intermittent asthma, uncomplicated Chronic constipation Bilateral carpal tunnel syndrome Cervical spondylosis with myelopathy and radiculopathy Surgical History History of cardiac catheterization 2004 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 No significant stenosis. S/P cervical spinal fusion S/P knee surgery Previous back surgery H/O cervical spinal arthrodesis Family History Mother Cancer Father Cancer Social History Smoking and tobacco/nicotine status: former use of tobacco/nicotine Quit status (tobacco/nicotine): has quit using Year quit tobacco: 1995 Second hand smoke exposure: No Alcohol intake: never Substance/Drug Use: never Adopted: No Caregiver/support person: Yes Lives independently: No Household members: spouse Housing: House Marital status: Current occupational status: employed Do you think of yourself as: Straight/Heterosexual Current gender identity: Male Special tigist needs: No Agree to transfusion: No Physical Exam 2 Const: COMMON NORMALS: patient oriented x3 HENMT: COMMON NORMALS: normocephalic and atraumatic HEAD & SCALP: n ormocephalic and atraumatic Neck/C-Spine: COMMON NORMALS: full ROM and supple Chest: COMMONS NORMALS: normal inspection of the chest and normal palpation of entire chest wall Resp: COMMON NORMALS: normal respiratory effort, No retractions, No use of accessory muscles and clear to auscultation bilaterally AUSCULTATION: clear to auscultation bilaterally Cardio: COMMON NORMALS: regular rate, regular rhythm and No murmurs present (Cardio) RATE: regular rate RHYTHM: regular rhythm Extremity: COMMON NORMALS: normal to inspection and full ROM Neuro: COMMON NORMALS: patient oriented x3, moves all extremities and no focal motor deficits Psych: COMMON NORMALS: mental status grossly normal, Normal thought process present and cooperative THOUGHT PROCESS: Normal thought process present Skin: COMMON NORMALS: no rashes or lesions noted and no wounds GENERAL SKIN EXAM: no rashes or lesions noted Course 2 Reevaluation(s): Reevaluation #1: Discussed patient's initial troponin with him it is negative he states he feels much improved currently did discuss possibility of admission with him with his history states he feels improved he actually has an appoint with cardiology on Thursday Dr. Alvarado after discussing with him we decided to wait for 2-hour troponin and pin decision off what his 2-hour troponin is Time: 14:38 Vital Signs: Vital signs: Vital Signs Temperature 98.0 F 12/28/23 13:14 Pulse Rate 75 12/28/23 14:41 Respiratory Rate 16 12/28/23 14:41 Blood Pressure 124/75 12/28/23 14:41 Pulse Oximetry 98 12/28/23 14:41 Oxygen Delivery Me thod Room Air 12/28/23 14:41 MDM - Chest Pain Medical Decision Making Patient presents for chest pain along with some lightheadedness both his troponins here are normal he is feeling improved he has appoint with cardiology on Thursday feel he is stable for discharge informed if he has any worsening symptoms he is to return immediately he understands agrees to plan. Medical Records I reviewed the patient's medical records. Lab Data I reviewed the patient's lab results. 12/28/23 13:31 12/28/23 13:31 Laboratory Results WBC 10.11 10^3/uL (3.29-11.43) 12/28/23 13:31 RBC 4.75 10^6/uL (3.85-5.65) 12/28/23 13:31 Hgb 15.40 g/dL (11.27-16.99) 12/28/23 13:31 Hct 44.5 % (37-53) 12/28/23 13:31 MCV 93.7 fl (82-101) 12/28/23 13:31 MCH 32.4 pg (27-33) 12/28/23 13:31 MCHC 34.6 g/dL (30-55) 12/28/23 13:31 RDW 13.0 % (12.1-15.1) 12/28/23 13:31 Plt Count 316 10^3/cmm (157-399) 12/28/23 13:31 MPV 9.4 fL (7.4-10.4) 12/28/23 13:31 Neut % (Auto) 66.5 % 12/28/23 13:31 Lymph % (Auto) 22.8 % 12/28/23 13:31 Addison % (Auto) 7.6 % 12/28/23 13:31 Eos % (Auto) 1.5 % 12/28/23 13:31 Baso % (Auto) 1.4 % 12/28/23 13:31 Neut # (Auto) 6.72 10^3/uL (1.8-7.7) 12/28/23 13:31 Lymph # (Auto) 2.3 10^3/uL (0.8-4.8) 12/28/23 13:31 Addison # (Auto) 0.8 10^3/uL (0.2-0.9) 12/28/23 13:31 Eos # (Auto) 0.2 10^3/uL (0.0-0.8) 12/28/23 13:31 Baso # (Auto) 0.1 10^3/uL (0.0-0.1) 12/28/23 13:31 Nucleated RBC % (auto) 0 % 12/28/23 13:31 Nucleated RBCs # 0.0 /100WBC 12/28/23 13:31 PT 12.90 SECONDS (12.1-14.9) 12/28/23 13:31 INR 0.94 (0.8-1.2) 12/28/23 13:31 Sodium 139 mmol/L (136-145) 12/28/23 13:31 Potassium 4.1 mmol/L (3.5-5.1) 12/28/23 13:31 Chloride 100 mmol/L (98-107) 12/28/23 13:31 Carbon Dioxide 28 mmol/L (22-29) 12/28/23 13:31 Anion Gap 15.1 (5-19) 12/28/23 13:31 BUN 14 mg/dL (6-20) 12/28/23 13:31 Creatinine 0.9 mg/dL (0.7-1.2) 12/28/23 13:31 GFR Calculation 87.6 mL/min (90-130) L 12/28/23 13:31 Glucose 95 mg/dL (65-115) 12/28/23 13:31 Calculated Osmolality 288 mOsm/kg (285-295) 12/28/23 13:31 Calcium 8.8 mg/dL (8.5-10.5) 12/28/23 13:31 Total Bilirubin 0.6 mg/dL (0.15-1.2) 12/28/23 13:31 AST 12 U/L (0-40) 12/28/23 13:31 ALT 7 U/L (0-41) 12/28/23 13:31 Alkaline Phosphatase 94 U/L (40-130) 12/28/23 13:31 Troponin T Baseline < 6 ng/L (0-15) 12/28/23 13:31 Troponin T 120 Minute 6.12 ng/L (0-15) 12/28/23 15:05 Delta Troponin T 0.07104 ABS# (0-10) 12/28/23 15:05 NT-Pro-B Natriuret Pep < 36 pg/mL (0-125) 12/28/23 13:31 Total Protein 6.8 g/dL (6.6-8.7) 12/28/23 13:31 Albumin 4.1 g/dL (3.5-5.2) 12/28/23 13:31 Globulin 2.7 g/dL (1.3-4.6) 12/28/23 13:31 All radiology interpretation(s) finalized by discharge EKG Data EKG 1: I personally reviewed and interpreted this EKG as follows: EKG interpretation date: 12/28/23 EKG interpretation time: 13:07 Interpretation: nsr hr [address] or t wqave abnormalities qrs 106 qtc 402 EKG 2: I personally reviewed and interpreted this EKG as follows: EKG interpretation date: 12/28/23 EKG interpretation time: 15:08 Interpretation: nsr hr [address] or t wave abnormalities qrs 109 [id number] Discharge Plan Discharge Patient Disposition: Home Clinical Impression: Chest pain Condition: Stable Prescriptions: No Action ipratropium-albuterol 20-100 mcg/actuation mist 1 puff inhalation QID PRN (Reason: shortness of breath or wheezing) Qty: 4 5RF aspirin [Adult Low Dose Aspirin] 81 mg tablet,delayed release (DR/EC) 81 mg PO DAILY bumetanide 2 mg tablet 2 mg PO DIRECTED 90 Days Qty: 180 1RF Rx Instructions: Alternate 2mg (one tab) every other evening and 4mg (2 tabs) every other evening Metamucil 3.4 gram/5.4 gram powder 1 tbsp PO DAILY PRN (Reason: Constipation) Rx Instructions: mix into at least 8 oz of water or juice before administering epinephrine [EpiPen 2-Cecil] 0.3 mg/0.3 mL auto-injector 0.3 mg IM Q15M PRN (Reason: anaphylaxis) Qty: 2 0RF nitroglycerin 0.4 mg tablet, sublingual 0.4 mg sublingual Q5M PRN (Reason: chest pain) Qty: 20 1RF Rx Instructions: do not exceed [address] under tongue meloxicam 15 mg tablet 15 mg PO DAILY 90 Days Qty: 90 1RF Rx Instructions: WITH FOOD potassium chloride 20 mEq tablet,ER particles/crystals 20 meq PO BID 90 Days Qty: 180 3RF simvastatin 40 mg tablet 40 mg PO DAILY losartan 100 mg tablet 100 mg PO DAILY budesonide-formoterol [Symbicort] 160-4.5 mcg/actuation HFA aerosol inhaler 2 puff inhalation BID PRN (Reason: Allergy Symptoms) fluticasone propionate 50 mcg/actuation spray,suspension 1 spray INTRANASAL BID Discharge Orders: Discharge ED (Routine); Ordered 12/28/23 Ordered By: Issa Arevalo Referrals: Kandi Swan MD [Primary Care Provider] - 1-3 days Discharge Diet: Advance as tolerated Discharge Activity: Resume usual activity Patient Instructions: Chest Pain (ED) Coding Level of Care Code ED 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
[2023-12-28 13:59] LABS: Basophils # 0.1 10^3/uL (0.0-0.1); Basophils % 1.4 %; Eosinophils # 0.2 10^3/uL (0.0-0.8); Eosinophils % 1.5 %; Hematocrit 44.5 % (37-53); Lymphocytes # 2.3 10^3/uL (0.8-4.8); Lymphocytes % 22.8 %; Mean Corpuscular HGB Conc 34.6 g/dL (30-55); Mean Corpuscular Hemoglobin 32.4 pg (27-33); Mean Corpuscular Volume 93.7 fl (82-101); Mean Platelet Volume 9.4 fL (7.4-10.4); Monocytes # 0.8 10^3/uL (0.2-0.9); Monocytes % 7.6 %; Neutrophils # 6.72 10^3/uL (1.8-7.7); Neutrophils % 66.5 %; Nucleated Red Blood Cells % 0 %; Platelet Count 316 10^3/cmm (157-399); Red Blood Count 4.75 10^6/uL (3.85-5.65); White Blood Count 10.11 10^3/uL (3.29-11.43)
[2023-12-28 14:08] LABS: INR 0.94 (0.8-1.2)
[2023-12-28 14:16] LABS: Troponin(5th) Baseline < 6 ng/L (0-15)
[2023-12-28 14:26] LABS: Alanine Aminotransferase 7 U/L (0-41); Albumin Level 4.1 g/dL (3.5-5.2); Alkaline Phosphatase 94 U/L (40-130); Anion Gap 15.1 (5-19); Aspartate Amino Transferase 12 U/L (0-40); Blood Urea Nitrogen 14 mg/dL (6-20); Calcium 8.8 mg/dL (8.5-10.5); Carbon Dioxide 28 mmol/L (22-29); Chloride 100 mmol/L (98-107); Creatinine Clr Calc Pharmacy 129.4225; Globulin 2.7 g/dL (1.3-4.6); Glomerular Filtration Rate 87.6 mL/min (90-130); Glucose 95 mg/dL (65-115); NT Pro B Type Natriuretic Pept < 36 pg/mL (0-125); Osmolality Calculated 288 mOsm/kg (285-295); Potassium 4.1 mmol/L (3.5-5.1); Sodium 139 mmol/L (136-145); Total Bilirubin 0.6 mg/dL (0.15-1.2); Total Protein 6.8 g/dL (6.6-8.7)
[2023-12-28 14:41] VITALS: BP 124/75; PULSE 75; RESP 16; O2SAT 98
--- NOTE | 2023-12-28 15:09 | ECG_ITS ---
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 Measurements Intervals [place] Rate: 69 P: 71 CO: 163 QRS: 87 QRSD: 109 T: 75 QT: 391 QTc: 421 Interpretive Statements SINUS RHYTHM LOW QRS VOLTAGE IN PRECORDIAL LEADS [QRS DEFLECTION < 1.0 mV IN CHEST LEADS] Compared to ECG 12/28/2023 13:07:47 No significant changes Electronically Signed On 12-28-2023 19:36:49 CDT by Sandip Chua M.D. [email or web address]
[2023-12-28 15:44] LABS: Troponin 5 2HR 6.12 ng/L (0-15); Troponin 5 2HR Delta 0.12001 ABS# (0-10)
[2023-12-28 15:58] VITALS: BP 132/72; PULSE 74; RESP 16; O2SAT 97
== END 2023-12-28 15:59 | disposition home or self-care (01) ==
PROVIDERS: Emergency Provider Emergency Medicine; PCP Family Medicine
DX: R07.9 Chest pain, unspecified (principal); Z79.82 Long term (current) use of aspirin; Z87.891 Personal history of nicotine dependence; I25.10 Atherosclerotic heart disease of native coronary artery without angina pectoris; I11.0 Hypertensive heart disease with heart failure; I50.30 Unspecified diastolic (congestive) heart failure; E78.5 Hyperlipidemia, unspecified
CPT/HCPCS: 71045; 80053; 83880; 84484; 85025; 85610; 93005; 99285

== ENCOUNTER → 2023-12-31 10:01 | Outpatient (BNVA) | payer OTHER, SELFPAY | PROVIDERS: PCP Family Medicine; Visit Provider Family Medicine | DX: I49.9 Cardiac arrhythmia, unspecified (principal) | CPT/HCPCS: 93005 ==

== ENCOUNTER 2024-01-07 07:21 | Outpatient (CLI) | payer OTHER, SELFPAY ==
[2024-01-07] VITALS (24 sets, daily range): BP systolic 117–156; BP diastolic 71–105; PULSE 60–80; RESP 12–25; TEMP 36.8–36.9; O2SAT 97–100; BMI 46.3
[2024-01-07] MEDS: diphenhydrAMINE 50 mg Capsule PO (07:40)
--- NOTE | 2024-01-07 08:21 | W.PM.OPSUD ---
Surgery/Procedure H&P Update DATE OF PROCEDURE: January 07, 2024 DATE H&P PERFORMED: 01/01/24 H&P UPDATE INFORMATION: I have reviewed H&P completed within last 30 days, I have examined patient prior to procedure, No changes to prior documentation and H&P is in [facility] EMR on date indicated PREOP DIAGNOSIS: cp PRIMARY INDICATION FOR PROCEDURE: cp PLANNED PROCEDURE: Operation Date: 01/07/24 08:30 Proposed Procedures p Cardiac Catheterization/ C 31510, R07.9 , I20.0(Left) - Adam Alvarado MD
--- NOTE | 2024-01-07 08:30 | XACV_ITS ---
Exam Room: 2 Ht: 175 cm Wt: 142 kg BSA: 2.71 m2 Gender: Male : 1970 Any Known Allergies: Stings Exam Priority: Routine Procedure(s): Procedure Description: Diagnostic procedure Christiaon MAHONEY; Diagnostic Cath Status: Elective Diagnostic Findings * Patient with very atypical symptoms anxious about previous angiography where he was told he had a 40% blockage. Scheduled for angiography today to reassess this. * Initially an attempt was made to proceed from the right radial artery. I was able to enter the artery 3 times but was never able to get the wire to feed past the end of the needle. The procedure was completed from the right common femoral artery. Coronary angiography reveals right coronary artery dominance. There is no true left main. Both the LAD and circumflex have separate ostia. Both were intubated separately with different catheters the LAD with a 3.5 Pamela catheter and the circumflex with a 4.0 Pamela catheter. The circumflex and LAD are both normal. The right is a dominant artery and relatively small. There are minimal minor luminal irregularities but no significant lesions. Conclusions 1. Nonobstructive coronary artery disease. Recommendations * Continued risk factor modification. Interventional RX Recommendation: medical therapy and/or counseling Diagnostic RX Recommendation: medical therapy and/or counseling Pressures Phase:Rest AO : 140 / 87 ( 108 ) @ 9:54:00 AM Clinical Evaluation EBL: 5mL-10mL Procedural Details Procedure Consent Obtained. Pre-Procedure Time Out. Identified patient by full name and date of as verbalized by the patient/guarantor. Does the consent match the physician's order: Yes. Accurate & Complete Informed Consent: Yes. Inpatient/Outpatient History & Physical on Chart: Yes. If H&P is completed, is and addenduem needed: No; If yes, is the addendum complete: N/A. Visualize and Verify Site with Patient/Guarantor: N/A. Relevant Radiology Images available: Yes. Pre-op teaching completed and patient verbalized understanding. The risks, benefits, and alternatives of sedation and/or procedure were discussed by physician. The patient agrees to continue. Procedure started. Physician arrived. Current Diagnosis : Chest Pain. [facility] Clinical Fraility Score: 3: Managing Well. Tick Eradicator Indications: Worsening Angina. Chest Pain Symptom Assessment: Typical Angina Symptoms. Correct patient, site and procedure confirmed by cath team. Current diagnosis: Chest Pain. PERRLA. Strong, equal hand anodic treater bilaterally. Lungs clear x 5 lobes. IV Site on Arrival: 20 gauge in the left anticubital. IV Fluids: 0.9% NaCl at KVO. 0 mL infused prior to lab aid. Pre Procedural Pulses: bilateral dorsalis pedis was 3+. Pre Procedural Pulses: bilateral posterior tibial was 2+. Pre Procedural Pulses: bilateral radial was 3+. Oxygen started at 2liters/min via nasal canula. right groin was prepped with chloroprep then draped in the usual sterile fashion. right radial was prepped with chloroprep then draped in the usual sterile fashion. Baseline sample Acquired. HR: 71 BPM. Physician scrubbed in. Immediate Pre-Procedure Time Out. Correct Patient: Yes; Correct Procedure: Yes; Correct Site: Yes; Correct Patient Position: Yes; Correct Supplies: Yes; Dried Flammable Prep: Yes; Blood Products Available: N/A;. Lidocaine 1% infiltrated to the right radial. Arterial access obtained. Wire unable to advance. Wire and needle removed. Arterial access obtained. Wire unable to advance. Wire and needle removed. Arterial access obtained. Wire unable to advance. Wire and needle removed. An attempt to gain access to the right radial artery was unsuccessful. TR band was placed to stop the bleeding. Lidocaine 1% infiltrated to the right groin. A 5 gabonese JL4 catheter in over wire. Multiple views taken of left coronary artery. Catheter removed over the standard wire. A 5 gabonese JR4 catheter in over wire. Multiple views taken of right coronary artery. Catheter removed over the standard wire. A 5 gabonese JL3.5 catheter in over wire. Multiple views taken of left coronary artery. Catheter out. A Manual Compression was successful obtaining hemostatsis at the Right Femoral artery insertion site. Post Procedure: Pulses reassessed and unchanged. A 16Fr maldonado catheter was inserted without resistance maintaining sterile technique. Bag to gravity with clear urine returning. PERRLA. Strong, equal hand anodic treater bilaterally. No VTE prophylaxis required. Medication's Wasted: Other = Fentanyl 50mcg Versed 1 mg. Total IV fluids: 50 mL. Medication's Wasted: Nitro = 50 mcg. Medication's Wasted: Heparin = 6000 units. Complications: None. Estimated blood loss: 5mL-10mL. Responsiveness - Normal response to verbal stimuli; alert and oriented, PERRLA. Airway - Unaffected, no intervention required; spontaneous ventilation. Circulation: W/N/L, pulses unchanged. Nausea/Vomiting: No. Procedure completed. Vital chart was stopped. Access Site Site: Right Femoral artery Sheath Size: 6 Fr Hemostasis Method: Manual Compression Hemostasis Success: Successful Procedure Medications Start: 8:27 AM Stop: 8:27 AM Medication: Versed Amount: 1 mg Route: I.V. Start: 8:29 AM Stop: 8:29 AM Medication: Fentanyl Amount: 25 mcg Route: I.V. Start: 8:32 AM Stop: 8:32 AM Medication: Versed Amount: 1 mg Route: I.V. Start: 8:37 AM Stop: 8:37 AM Medication: Fentanyl Amount: 25 mcg Route: I.V. Start: 8:41 AM Stop: 8:41 AM Medication: Versed Amount: 1 mg Route: I.V. Start: 8:52 AM Stop: 8:52 AM Medication: Versed Amount: 1 mg Route: I.V. Start: 8:53 AM Stop: 8:53 AM Medication: Fentanyl Amount: 50 mcg Route: I.V. Start: 8:58 AM Stop: 8:58 AM Medication: Benadryl Amount: 25 mg Route: I.V. I, the attending physician, have reviewed and verified all procedure medications. Yes, all medications given per verbal order History/Risk Factors Hypertension: Yes Dyslipidemia: Yes Peripheral Arterial Disease (PAD): No Myocardial Infarction (AL): No Obesity: Yes Renal Disease: No Tobacco Use: Former Prior Interventions PCI: No CABG: No Valve Surgery: No Report Signatures Finalized by Dr. Adam Alvarado MD on 01/07/2024 09:42 AM
--- NOTE | 2024-01-07 10:26 | P.DS_ITS ---
Discharge Providers Date of Admission: 01/07/2024 Date of Discharge: January 07, 2024 Attending Provider at Admission: Christiano Attending Provider at Discharge: Adam Alvarado MD Primary Care Provider: Kandi Swan MD Diagnoses at Discharge Discharge Diagnosis (1) Dyslipidemia: Status: Chronic (2) Diastolic CHF: Status: Chronic Qualifiers: Heart failure chronicity: chronic Qualified Code(s): I50.32 - Chronic diastolic (congestive) heart failure (3) Essential hypertension: Status: Chronic Permanent problem details: Switched from ibersartan to losartan due to availability of medication (4) Dyspnea on exertion: Status: Acute (5) Irregular heart beats: Status: Acute (6) Obstructive lung disease: Status: Chronic (7) SOB (shortness of breath): Status: Acute (8) Obesity: Status: Acute (9) Dizziness: Status: Acute Reason for Visit Reason for Visit: R07.9, I20.0 Brief History: Patient requested an office visit a couple weeks ago because of disabling sympt oms of chest pain, shortness of breath, dizziness and presyncope. He had been told several years ago that he had a 40% lesion in one of his coronary arteries and that if it became 60% he would need a stent. He has been focused on that 40% lesion. The only way to solve this was to perform repeat angiography to assess the problem. Hospital Course Hospital Course Patient underwent angiography today. An attempt was made by the right radial artery. I was able to enter the artery 3 times with a needle but was never able to feed the wire. The procedure was completed from the right common femoral artery. His coronary arteries are essentially normal with the exception of the right coronary artery which reveals mild diffuse luminal irregularities. He has a right dominant system. He has no true left main but has separate ostia for the circumflex and LAD. There were no complications. No bleeding at either site. No vascular complications. Patient will be sent home on the same medications and follow-up in a week to 10 days with the nurse practitioner in our office at his request. Physical Exam Narrative: GENERAL: In general he looks and feels well HEENT: Exam within normal limits. NECK: Supple without jugular vein distention. The carotid upstroke is normal without bruits. BACK: Exam normal. LUNGS: Clear. HEART: Regular rate and rhythm. ABDOMEN: Benign without organomegaly or tenderness. EXTREMITIES: No edema. The right radial artery entry site and the right groin are flat, dry without bleeding, hematoma or vascular anomaly at the time of discharge. NEUROLOGIC: Exam normal. SKIN: Unremarkable. Discharge Data Studies Completed and Pending Completed Studies During Hospitalization Category Date Time Status [employer] request for service Routine Exams 01/07/24 08:30 Completed Pending at discharge Category Date Time Status Basic Metabolic Panel Stat Lab 01/07/24 07:30 Ordered Complete Blood Count w/Auto Stat Lab 01/07/24 07:30 Ordered Vitals Last Vital Signs Temp 98.5 F 01/07/24 07:56 Pulse 72 01/07/24 10:00 Resp 17 01/07/24 10:00 BP 141/87 01/07/24 10:00 Pulse Ox 98 01/07/24 10:00 O2 Del Method Room Air 01/07/24 09:30 Discharge Plan Discharge Patient Disposition: Home Prescriptions: Continued aspirin [Adult Low Dose Aspirin] 81 mg tablet,delayed release (DR/EC) 81 mg PO DAILY bumetanide 2 mg tablet 2 mg PO DIRECTED 90 Days Qty: 180 1RF Rx Instructions: Alternate 2mg (one tab) every other evening and 4mg (2 tabs) every other evening Combivent Respimat 20-100 mcg/actuation mist 1 puff inhalation Q6H PRN (Reason: Sob) Metamucil 3.4 gram/5.4 gram powder 1 tbsp PO DAILY PRN (Reason: Constipation) Rx Instructions: mix into at least 8 oz of water or juice before administering epinephrine [EpiPen 2-Cecil] 0.3 mg/0.3 mL auto-injector 0.3 mg IM Q15M PRN (Reason: anaphylaxis) Qty: 2 0RF nitroglycerin 0.4 mg tablet, sublingual 0.4 mg sublingual Q5M PRN (Reason: chest pain) Qty: 20 1RF Rx Instructions: do not exceed [address] under tongue meloxicam 15 mg tablet 15 mg PO DAILY 90 Days Qty: 90 1RF Rx Instructions: WITH FOOD potassium chloride 20 mEq tablet,ER particles/crystals 20 meq PO BID 90 Days Qty: 180 3RF simvastatin 40 mg tablet 40 mg PO DAILY losartan 100 mg tablet 100 mg PO DAILY budesonide-formoterol [Symbicort] 160-4.5 mcg/actuation HFA aerosol inhaler 2 puff inhalation BID PRN (Reason: Allergy Symptoms) fluticasone propionate 50 mcg/actuation spray,suspension 1 spray INTRANASAL BID PRN (Reason: ALLERGIES) Discharge Orders: Discharge Order (Routine); Ordered 01/07/24 Ordered By: Adam Alvarado Referrals: Kathi Zavala FNP [Nurse Practitioner] - 7-10 days Diet: Cardiac Activity: Increase activity as tolerated Activity Restrictions/Additional Instructions: No lifting over 5 pounds for 2 days. Discharge Attestations Time Spent in Discharge Care*: less than 30 min Quality Metrics Clinical Quality Measures [ No reported AMI, CVA or VTE this stay] Coding Level of Care Code 23549 Total time (in minutes) for Discharge: 25 Diagnoses Dyslipidemia E78.5 Chronic diastolic congestive heart failure I50.32 Heart failure chronicity: chronic Essential hypertension I10 Dyspnea on exertion R06.09 Irregular heart beats I49.9 Obstructive lung disease J44.9 SOB (shortness of breath) R06.02 Obesity E66.9 Dizziness R42
== END 2024-01-07 16:09 | disposition home or self-care (01) ==
LOC: CCL 09:36 → CSU 12:23
PROVIDERS: PCP Family Medicine; Visit Provider Internal Medicine Cardiovascular Disease
DX: I25.10 Atherosclerotic heart disease of native coronary artery without angina pectoris (principal); E78.5 Hyperlipidemia, unspecified; I11.0 Hypertensive heart disease with heart failure; I50.32 Chronic diastolic (congestive) heart failure; R06.00 Dyspnea, unspecified; G47.33 Obstructive sleep apnea (adult) (pediatric); R06.02 Shortness of breath; R42 Dizziness and giddiness; I49.9 Cardiac arrhythmia, unspecified; J44.9 Chronic obstructive pulmonary disease, unspecified; E66.9 Obesity, unspecified; Z68.42 Body mass index [BMI] 45.0-49.9, adult; Z87.891 Personal history of nicotine dependence
CPT/HCPCS: 36415; 93454; 96374; 96375; 99152; 99153; C1769; C1887; C1894; G0378; J1200; J1644; J2250; J3010; J3490; J7030; Q0163; Q9967

== ENCOUNTER → 2024-01-18 14:10 | Outpatient (BNVA) | payer OTHER, SELFPAY | PROVIDERS: PCP Family Medicine; Visit Provider Nurse Practitioner Family | DX: I25.10 Atherosclerotic heart disease of native coronary artery without angina pectoris (principal) | CPT/HCPCS: 36415; 80048 ==

== ENCOUNTER → 2024-07-20 16:10 | Outpatient (BNVA) | payer OTHER, SELFPAY | PROVIDERS: PCP Family Medicine; Visit Provider Internal Medicine Cardiovascular Disease | DX: I49.8 Other specified cardiac arrhythmias (principal); R06.02 Shortness of breath; R07.9 Chest pain, unspecified; R94.31 Abnormal electrocardiogram [ECG] [EKG] | CPT/HCPCS: 80048; 83880; 93005 ==

== ENCOUNTER → 2024-07-24 14:22 | Outpatient (BNVA) | payer OTHER, SELFPAY | PROVIDERS: PCP Family Medicine; Visit Provider Nurse Practitioner | DX: R00.2 Palpitations (principal); R42 Dizziness and giddiness; R06.02 Shortness of breath; I49.9 Cardiac arrhythmia, unspecified | CPT/HCPCS: 93005 ==

== ENCOUNTER → 2024-08-02 13:27 | Outpatient (BNVA) | payer OTHER, SELFPAY | PROVIDERS: PCP Family Medicine; Visit Provider Physician Assistant | DX: Z96.651 Presence of right artificial knee joint (principal) | CPT/HCPCS: 73560; 73565 ==

== ENCOUNTER → 2024-09-28 11:13 | Outpatient (BNVA) | payer OTHER, SELFPAY | PROVIDERS: PCP Family Medicine; Visit Provider Nurse Practitioner | DX: R50.9 Fever, unspecified (principal) | CPT/HCPCS: 87400; 87426 ==

== ENCOUNTER → 2025-01-18 11:28 | Outpatient (BNVA) | payer OTHER, SELFPAY | PROVIDERS: PCP Family Medicine; Visit Provider Nurse Practitioner Family | DX: I10 Essential (primary) hypertension (principal); E78.5 Hyperlipidemia, unspecified; I50.32 Chronic diastolic (congestive) heart failure | CPT/HCPCS: 36415; 80053; 83880; 85025 ==

== ENCOUNTER 2025-02-17 05:59 | Outpatient (CLI) | payer OTHER, SELFPAY ==
--- NOTE | 2025-02-17 06:15 | USCV_ITS ---
Carlos Guillen Age: 54 Gender: M : 1970 Exam Date: 02/17/2025 06:31 Ordering Phys: Annemarie Almeida NP Technologist: Yo Alcaraz [place]am [place] [facility] [place]ication: diastolic heart failure BP: 162 / 93 HR: 79 Rhythm: Sinus Technical Quality: Adequate MEASUREMENTS (Male / Female) Normal Values 2D ECHO LV Diastolic Diameter PLAX 5.5 cm 4.2 - 5.9 / 3.9 - 5.3 cm IVS Diastolic Thickness 1.3 cm 0.6 - 1.0 / 0.6 - 0.9 cm IVS Systolic Thickness 1.1 cm LVPW Diastolic Thickness 2.1 cm 0.6 - 1.0 / 0.6 - 0.9 cm LVPW Systolic Thickness 2.4 cm LVOT Diameter 2.2 cm LV Ejection Fraction 2D Teich 53.4 % LV Ejection Fraction MOD 4C 65.9 % LV Ejection Fraction MOD 2C 54.1 % LV Ejection Fraction 2C AL 54.8 % LA Diameter 3.2 cm RA Systolic Volume 4C AL 27.0 ml RA Systolic Volume 4C MOD 24.6 ml LA Sys Volume AL 32.3 cm cubed LA Sys Volume Index AL 11.8 cm cubed/m squared Aorta at Sinotubular Diameter 2.2 cm IVC Diameter 1.7 cm M-MODE LA Ao Ratio MM 1.3 AV Cusp Separation MM 2.0 cm DOPPLER AV Peak Velocity 111.0 cm/s LVOT Peak Velocity 93.0 cm/s AV Area Cont Eq vti 3.3 cm squared AV Area Cont Eq pk 3.3 cm squared MV Peak Velocity 101.0 cm/s MV Area PHT 5.6 cm squared Mitral E to A Ratio 0.8 TV Peak Velocity 180.0 cm/s TR Peak Velocity 188.0 cm/s TR Peak Gradient 14.1 mmHg TR Mean Velocity 154.0 cm/s TR Mean Gradient 10.2 mmHg TR Velocity Time Integral 46.2 cm RV Ejection Time 0.3 s FINDINGS Left Ventricle Normal left ventricular size, systolic function and wall thickness, with no regional wall motion abnormalities. Left ventricular ejection fraction is estimated at 60 %. Grade I/IV diastolic dysfunction (abnormal relaxation filling pattern), normal to mildly elevated filling pressures. Right Ventricle The right ventricle is normal in size and function. Right Atrium The right atrium is normal in size. Left Atrium The left atrium is normal in size. Mitral Valve Structurally normal mitral valve without significant stenosis or prolapse. There is no mitral regurgitation. Aortic Valve Mild aortic valve calcification. No aortic valve stenosis. Trace aortic valve regurgitation. Tricuspid Valve Structurally normal tricuspid valve without significant stenosis or regurgitation. Pulmonary artery systolic pressure is normal. Pulmonic Valve Structurally normal pulmonic valve without significant stenosis. There is no pulmonic regurgitation. Pericardium Normal pericardium without effusion. Aorta Normal ascending aorta dimension. IVC The inferior vena cava appears normal. CONCLUSIONS Normal left ventricular size, systolic function and wall thickness, with no regional wall motion abnormalities. Left ventricular ejection fraction is estimated at 60 %. Grade I/IV diastolic dysfunction (abnormal relaxation filling pattern), normal to mildly elevated filling pressures. Mild aortic valve calcification. No aortic valve stenosis. Trace aortic valve regurgitation. There is no pericardial effusion. Right atrial pressure is around 5 mm of mercury. Jayden Lee MD (Electronically Signed) Final Date: 20 February 2025 21:49 S
== END 2025-02-17 06:00 | disposition home or self-care (01) ==
PROVIDERS: PCP Family Medicine; Visit Provider Nurse Practitioner Family
DX: I50.32 Chronic diastolic (congestive) heart failure (principal); R93.1 Abnormal findings on diagnostic imaging of heart and coronary circulation; I35.8 Other nonrheumatic aortic valve disorders
CPT/HCPCS: 93306

== ENCOUNTER → 2025-03-02 08:22 | Outpatient (BNVA) | payer OTHER, SELFPAY | PROVIDERS: PCP Family Medicine; Visit Provider Family Medicine | DX: I10 Essential (primary) hypertension (principal); I50.32 Chronic diastolic (congestive) heart failure | CPT/HCPCS: 80048; 80061 ==

== ENCOUNTER → 2025-08-01 13:18 | Outpatient (BNVA) | payer SELFPAY | PROVIDERS: PCP Family Medicine; Visit Provider Physician Assistant | DX: Z47.89 Encounter for other orthopedic aftercare (principal); Z96.651 Presence of right artificial knee joint | CPT/HCPCS: 73560; 73565 ==